=== PATIENT | male | born 1980 | race Two or more races ===

== ENCOUNTER → 2016-06-03 | Outpatient (CLI) | payer OTHER, MEDICARE, MEDICAID ==
--- NOTE | 2016-06-04 11:21 | EKG REPORT ---
SEVERITY:- NORMAL ECG - SINUS RHYTHM [Remains] SIGNIFICANT RATE DECREASE NO SIGNIFICANT CHANGE : Confirmed by: Jada Rosen 04-Jun-2016 11:20:02
== END ==
LOC: OD 12:01
PROVIDERS: ATTEND Physician Assistant
DX: R07.9 Chest pain, unspecified (principal)
CPT/HCPCS: 71020; 93005; 93010

== ENCOUNTER 2016-06-19 15:47 | Emergency (ER) | payer OTHER, MEDICARE, MEDICAID ==
[2016-06-19] MEDS ORDERED: ASPIRIN 81 MG TABLET, CHEWABLE PO ONE (15:57)
--- NOTE | 2016-06-19 15:59 | ER Document Report ---
ED Medical Screen (RME) - General Stated Complaint: CHEST PAIN Notes: Patient complains of intermittent chest pain started a couple weeks ago. Had an EKG ordered by his primary care physician which looked normal at the time. Chest pain started again about 1 hour prior to his arrival. Complains of shortness of breath and dizziness, denies nausea or vomiting. States pain radiates to both arms. Patient describes the pain as sharp. Denies past medical history. I have greeted and performed a rapid initial assessment of this patient. A comprehensive ED assessment and evaluation of the patient, analysis of test results and completion of the medical decision making process will be conducted by additional ED providers. TRAVEL OUTSIDE OF THE [place] IN LAST 30 DAYS: No - Related Data Allergies/Adverse Reactions: baclofen [Baclofen] Allergy (Severe, Verified 03/27/15 09:49) Coma rabeprazole sodium [From Aciphex] Allergy (Severe, Verified 03/27/15 09:49) Severe sweating, turned red tramadol HCl [From Ultram] Allergy (Severe, Verified 03/27/15 09:49) Severe N&V nickel [Nickel] Allergy (Intermediate, Verified 03/27/15 10:03) sore, blister hydrocodone bitartrate [From Vicodin] Allergy (Mild, Verified 03/27/15 09:49) RASH Past Medical History - Past Medical History Cardiac Medical History: Denies: Hx Coronary Artery Disease, Hx Heart Attack, Hx Hypertension Pulmonary Medical History: Reports: Hx Asthma - Last attack over 10 years ago Denies: Hx Bronchitis, Hx COPD, Hx Pneumonia, Hx Tuberculosis Neurological Medical History: Reports: Hx Seizures - hx of, pt states last seizure at age 12. Denies: Hx Cerebrovascular Accident Musculoskeltal Medical History: Reports Hx Arthritis, Denies Hx Fibromyalgia, Denies Hx Multiple Sclerosis, Denies Hx Muscular Dystrophy, Reports Hx Muscle Weakness, Reports Hx Musculoskeletal Deformity, Reports Hx Musculoskeletal Trauma Psychiatric Medical History: Denies: Hx Dementia Traumatic Medical History: Denies: Hx Fractures Past Surgical History: Reports: Hx Orthopedic Surgery - left foot. Denies: Hx Appendectomy, Hx Bowel Surgery, Hx Cholecystectomy, Hx Coronary Artery Bypass Graft, Hx Gastric Bypass Surgery, Hx Herniorrhaphy, Hx Pacemaker, Hx Tonsillectomy - Immunizations Immunizations up to date: Yes Hx Diphtheria, Pertussis, Tetanus Vaccination: Yes Physical Exam - Cardiovascular Rhythm: Regular Heart sounds: Normal auscultation
[2016-06-19 16:46] LABS: APPEARANCE,URINE CLEAR; BILIRUBIN,URINE NEGATIVE (NEGATIVE); GLUCOSE, URINE NEGATIVE (NEGATIVE); KETONES,URINE NEGATIVE (NEGATIVE); LEUKOCYTE ESTERASE,URINE NEGATIVE (NEGATIVE); NITRITE,URINE NEGATIVE (NEGATIVE); PROTEIN,URINE NEGATIVE (NEGATIVE); URINE SPECIFIC GRAVITY 1.024
--- NOTE | 2016-06-19 16:58 | ER Document Report ---
ED Cardiac - General Chief Complaint: Chest Pain > 30 Stated Complaint: CHEST PAIN Time seen by provider: 16:53 Mode of Arrival: Ambulatory Information source: Patient Notes: 35 yo smoker, nonhyperlipedemic, non dm, non htn, normal weight , fhx: mom ablation, male c/o sharp retrosternal intermittent bilateral chest pain associated with SOB that radiates into both arms a couple weeks ago. Each episode lasts from 30 minutes to all day. Deep breath sometimes makes it worse, better when he relaxes. No cough, No fever or chills. No change in actitity or job. EKG at PCP was normal. Came in today whlie at work at 3:30 pm while he was sitting. Has it now. denies drugs and alcohol. hx 2 shoulder surgeries, cervical fusion, left foot surgery. Pain level 4/5. TRAVEL OUTSIDE OF THE [place] IN LAST 30 DAYS: No - Related Data Allergies/Adverse Reactions: baclofen [Baclofen] Allergy (Severe, Verified 03/27/15 09:49) Coma rabeprazole sodium [From Aciphex] Allergy (Severe, Verified 03/27/15 09:49) Severe sweating, turned red tramadol HCl [From Ultram] Allergy (Severe, Verified 03/27/15 09:49) Severe N&V nickel [Nickel] Allergy (Intermediate, Verified 03/27/15 10:03) sore, blister hydrocodone bitartrate [From Vicodin] Allergy (Mild, Verified 03/27/15 09:49) RASH Past Medical History - General Information source: Patient - Social History Smoking Status: Current Every Day Smoker Chew tobacco use (# tins/day): No Frequency of alcohol use: None Drug Abuse: None Lives with: Spouse/Significant other Family History: DM, Thyroid Disfunction, Other - tachycardia/ablation Patient has suicidal ideation: No Patient has homicidal ideation: No Pulmonary Medical History: Reports: Hx Asthma - Last attack over 10 years ago Neurological Medical History: Reports: Hx Seizures - hx of, pt states last seizure at age 12 Renal/ Medical History: Denies: Hx Peritoneal Dialysis Musculoskeltal Medical History: Reports Hx Arthritis, Reports Hx Muscle Weakness , Reports Hx Musculoskeletal Deformity, Reports Hx Musculoskeletal Trauma Past Surgical History: Reports: Hx Orthopedic Surgery - left foot - Immunizations Immunizations up to date: Yes Hx Diphtheria, Pertussis, Tetanus Vaccination: Yes Review of Systems - Review of Systems Constitutional: No symptoms reported EENT: No symptoms reported Cardiovascular: See HPI Respiratory: No symptoms reported Gastrointestinal: No symptoms reported Genitourinary: No symptoms reported Male Genitourinary: No symptoms reported Musculoskeletal: No symptoms reported Skin: No symptoms reported Hematologic/Lymphatic: No symptoms reported Neurological/Psychological: No symptoms reported Physical Exam - Vital signs Vitals: Temp Pulse Resp BP Pulse Ox 97.7 F 86 16 137/77 H 98 06/19/16 15:56 06/19/16 15:56 06/19/16 15:56 06/19/16 15:56 06/19/16 15:56 Interpretation: Normal - General General appearance: Appears well, Alert - HEENT Head: Normocephalic, Atraumatic Eyes: Normal Conjunctiva: Normal Pupils: PERRL Tympanic membrane: Normal Mucous membranes: Normal Pharynx: Normal Neck: Supple. No: Lymphadenopathy - Respiratory Respiratory status: No respiratory distress Chest status: Nontender Breath sounds: Normal Chest palpation: Normal - Cardiovascular Rhythm: Regular Heart sounds: Normal auscultation Murmur: No - Abdominal Inspection: Normal Distension: No distension Bowel sounds: Normal Tenderness: Nontender. No: Tender Organomegaly: No organomegaly - Back Back: Normal, Nontender. No: CVA tenderness - Extremities General upper extremity: Normal inspection, Nontender, Normal color, Normal ROM , Normal temperature General lower extremity: Normal inspection, Nontender, Normal color, Normal ROM , Normal temperature, Normal weight bearing. No: Radha's sign - Neurological Neuro grossly intact: Yes Cognition: Normal Orientation: AAOx4 [place] Coma Scale Eye Opening: Spontaneous [place] Coma Scale Verbal: Oriented [place] Coma Scale Motor: Obeys Commands [place] Coma Scale Total: 15 Speech: Normal Motor strength normal: LUE, RUE, LLE, RLE Sensory: Normal - Psychological Associated symptoms: Normal affect, Normal mood - Skin Skin Temperature: Warm Skin Moisture: Dry Skin Color: Normal Skin irregularity: negative: Rash Course - Re-evaluation Re-evalutation: 06/19/16 18:12 Pain level is 3/5 morphine 4 mg ordered. 06/19/16 18:36 Patient pain level is 0. Morphine was not given so I canceled order. 06/19/16 18:36 First set of cardiac enzymes are negative the second set is due to be drawn at 06/19/16 18:47 2nd troponin will be drawn at [address] monk the second troponin is negative he be discharged home with a referral to cardiology. Report given to Will AGUILAR at the bedside 06/19/16 19:24 - Vital Signs Vital signs: Temp Pulse Resp BP Pulse Ox 97.7 F 86 20 137/80 H 97 06/19/16 15:56 06/19/16 15:56 06/19/16 17:07 06/19/16 17:06 06/19/16 17:07 - Laboratory Result Diagrams: 06/19/16 17:10 06/19/16 17:10 Laboratory results interpreted by me: 06/19/16 06/19/16 06/19/16 16:27 17:10 17:10 RBC 5.90 H RDW 15.1 H Glucose 119 H Urine Blood MODERATE H Urine Urobilinogen 2.0 H - EKG Interpretation by Me EKG shows normal: Sinus rhythm Rate: Normal Rhythm: NSR When compared to previous EKG there are: No significant change - from 06-05-16 - Transfer of Care Care transferred to following provider: Will AGUILAR at the bedside Discharge - Discharge Clinical Impression: chest pain Condition: Good Disposition: HOME, SELF-CARE Instructions: Chest Pain of Unclear Cause ([facility]), Aspirin (Cardiac) ([facility]) Additional Instructions: Call and 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 If you do not receive a survey, then you can go to the [facility] website, [email or web address] and place your comments about your very good care. Thank you very much. It was a pleasure being your medical provider today. Referrals: ROBERT VIGIL MD [Primary Care Provider] - Follow up as needed LAURY OWENS MD [ACTIVE STAFF] - Follow up in 3-5 days
[2016-06-19 17:31] LABS: ABSOLUTE BASOPHILS # (AUTO) 0.1 10^3/uL (0.0-0.2); ABSOLUTE EOSINOPHILS # (AUTO) 0.3 10^3/uL (0.0-0.6); ABSOLUTE LYMPHOCYTES (AUTO) 1.6 10^3/uL (0.5-4.7); ABSOLUTE MONOCYTES (AUTO) 0.6 10^3/uL (0.1-1.4); ABSOLUTE NEUT (AUTO) 4.1 10^3/uL (1.7-8.2); BASOPHILS % (AUTO) 0.8 % (0-2); EOSINOPHILS % (AUTO) 4.8 % (0-6); HEMATOCRIT 47.9 % (37.9-51.0); HEMOGLOBIN 16.1 g/dL (13.5-17.0); HGB HCT DIFFERENCE 0.4; LYMPHOCYTES % (AUTO) 24.4 % (13-45); MEAN CORPUSCULAR HEMOGLOBIN 27.4 pg (27.0-33.4); MEAN CORPUSCULAR HGB CONC 33.7 g/dL (32.0-36.0); MEAN CORPUSCULAR VOLUME 81 fl (80-97); MONOCYTES % (AUTO) 9.3 % (3-13); RED CELL DISTRIBUTION WIDTH 15.1 % (11.5-14.0); SEGMENTED NEUTROPHILS % (AUTO) 60.7 % (42-78); WHITE BLOOD COUNT 6.8 10^3/uL (4.0-10.5)
[2016-06-19 17:55] LABS: ALANINE AMINOTRANSFERASE 37 U/L (21-72); ALBUMIN 4.5 g/dL (3.5-5.0); ALKALINE PHOSPHATASE 88 U/L (38-126); ANION GAP 16 (5-19); ASPARTATE AMINO TRANSFERASE 26 U/L (17-59); BILIRUBIN,DIRECT 0.4 mg/dL (0.0-0.4); BILIRUBIN,TOTAL 0.6 mg/dL (0.2-1.3); BLOOD UREA NITROGEN 15 mg/dL (7-20); CALCIUM 9.4 mg/dL (8.4-10.2); CARBON DIOXIDE 23 mmol/L (22-30); CHLORIDE 106 mmol/L (98-107); CREATINE KINASE 133 U/L (55-170); CREATININE RESULT 1.02 mg/dL (0.52-1.25); GLUCOSE 119 mg/dL (75-110); POTASSIUM 4.1 mmol/L (3.6-5.0); TOTAL PROTEIN 7.5 g/dL (6.3-8.2)
[2016-06-19 18:05] LABS: CREATINE KINASE MB 0.88 ng/mL (<4.55)
[2016-06-19 18:08] LABS: TROPONIN I < 0.012 ng/mL
[2016-06-19] MEDS ORDERED: MORPHINE SULFATE 10 MG/ML INJ IV ONE (18:11)
[2016-06-19 19:01] LABS: URINE BARBITURATES SCREEN NEGATIVE; URINE METHADONE SCREEN NEGATIVE; URINE OPIATES LOW NEGATIVE; URINE PHENCYCLIDINE SCREEN NEGATIVE
[2016-06-19 21:30] VITALS: BP 115/71
--- NOTE | 2016-06-19 22:02 | EKG REPORT ---
SEVERITY:- OTHERWISE NORMAL ECG - SINUS RHYTHM BORDERLINE LEFT AXIS DEVIATION : Confirmed by: Jada Rosen 19-Jun-2016 22:01:35
== END 2016-06-19 21:36 | disposition home or self-care (01) ==
LOC: ER 15:47
DX: R07.9 Chest pain, unspecified (principal); F17.200 Nicotine dependence, unspecified, uncomplicated
CPT/HCPCS: 36415; 71010; 80053; 80307; 81001; 82550; 82553; 84484; 85025; 93005; 93010; 99285

== ENCOUNTER → 2016-08-12 | Outpatient (CLI) | payer OTHER, MEDICARE, MEDICAID ==
[2016-08-12 11:04] LABS: ABSOLUTE BASOPHILS # (AUTO) 0.1 10^3/uL (0.0-0.2); ABSOLUTE EOSINOPHILS # (AUTO) 0.3 10^3/uL (0.0-0.6); ABSOLUTE LYMPHOCYTES (AUTO) 1.8 10^3/uL (0.5-4.7); ABSOLUTE MONOCYTES (AUTO) 0.6 10^3/uL (0.1-1.4); ABSOLUTE NEUT (AUTO) 3.7 10^3/uL (1.7-8.2); BASOPHILS % (AUTO) 0.8 % (0-2); EOSINOPHILS % (AUTO) 4.4 % (0-6); HEMATOCRIT 47.5 % (37.9-51.0); HGB HCT DIFFERENCE 0.5; LYMPHOCYTES % (AUTO) 28.3 % (13-45); MEAN CORPUSCULAR HEMOGLOBIN 27.6 pg (27.0-33.4); MEAN CORPUSCULAR HGB CONC 33.6 g/dL (32.0-36.0); MEAN CORPUSCULAR VOLUME 82 fl (80-97); MONOCYTES % (AUTO) 8.9 % (3-13); RED BLOOD COUNT 5.79 10^6/uL (4.35-5.55); RED CELL DISTRIBUTION WIDTH 14.9 % (11.5-14.0); SEGMENTED NEUTROPHILS % (AUTO) 57.6 % (42-78); WHITE BLOOD COUNT 6.5 10^3/uL (4.0-10.5)
[2016-08-12 11:11] LABS: PARTIAL THROMBOPLASTIN TIME 29.4 SEC (23.5-35.8)
[2016-08-12 11:23] LABS: ALANINE AMINOTRANSFERASE 36 U/L (21-72); ALBUMIN 4.5 g/dL (3.5-5.0); ALKALINE PHOSPHATASE 85 U/L (38-126); ANION GAP 12 (5-19); ASPARTATE AMINO TRANSFERASE 28 U/L (17-59); BILIRUBIN,DIRECT 0.3 mg/dL (0.0-0.4); BILIRUBIN,TOTAL 0.7 mg/dL (0.2-1.3); BLOOD UREA NITROGEN 9 mg/dL (7-20); CALCIUM 9.8 mg/dL (8.4-10.2); CARBON DIOXIDE 25 mmol/L (22-30); CHLORIDE 106 mmol/L (98-107); CHOLESTEROL 184.35 mg/dL (0-200); CREATININE RESULT 1.02 mg/dL (0.52-1.25); Direct HDL 37 mg/dL (>40); GLUCOSE 83 mg/dL (75-110); POTASSIUM 4.1 mmol/L (3.6-5.0); SODIUM 143.2 mmol/L (137-145); TOTAL PROTEIN 7.5 g/dL (6.3-8.2); TRIGLYCERIDES 307 mg/dL (<150)
[2016-08-12 11:34] LABS: DIRECT LDL 106 mg/dL (<100)
[2016-08-12 11:39] LABS: VLDL CHOLESTEROL 61.4 mg/dL (10-31)
== END ==
LOC: LAB 10:35
PROVIDERS: ATTEND Physician Assistant Medical
DX: R07.9 Chest pain, unspecified (principal); R06.00 Dyspnea, unspecified; R42 Dizziness and giddiness
CPT/HCPCS: 36415; 80053; 80061; 83036; 85025; 85610; 85730

== ENCOUNTER 2016-11-19 08:27 | Emergency (ER) | payer OTHER, MEDICARE, MEDICAID ==
[2016-11-19] MEDS ORDERED: NORMAL SALINE 1000 ML 1,000 ML IV ONE ×2 (09:13→10:36)
[2016-11-19 09:39] LABS: ABSOLUTE EOSINOPHILS # (AUTO) 0.2 10^3/uL (0.0-0.6); ABSOLUTE LYMPHOCYTES (AUTO) 1.4 10^3/uL (0.5-4.7); ABSOLUTE MONOCYTES (AUTO) 0.5 10^3/uL (0.1-1.4); ABSOLUTE NEUT (AUTO) 3.7 10^3/uL (1.7-8.2); BASOPHILS % (AUTO) 0.8 % (0-2); HEMOGLOBIN 16.6 g/dL (13.5-17.0); HGB HCT DIFFERENCE 0.8; LYMPHOCYTES % (AUTO) 24.3 % (13-45); MEAN CORPUSCULAR HEMOGLOBIN 28.4 pg (27.0-33.4); MEAN CORPUSCULAR VOLUME 84 fl (80-97); MONOCYTES % (AUTO) 8.8 % (3-13); RED BLOOD COUNT 5.87 10^6/uL (4.35-5.55); RED CELL DISTRIBUTION WIDTH 15.2 % (11.5-14.0); SEGMENTED NEUTROPHILS % (AUTO) 62.1 % (42-78); WHITE BLOOD COUNT 5.9 10^3/uL (4.0-10.5)
--- NOTE | 2016-11-19 09:55 | RADIOLOGY REPORT (SQ) ---
EXAM DESCRIPTION: CT HEAD WITHOUT COMPLETED DATE/TIME: 11/19/2016 9:18 am REASON FOR STUDY: ams COMPARISON: 08/03/2016, 12/30/2009, 11/22/2011, 11/27/2011 CT brain TECHNIQUE: Axial images acquired through the brain without intravenous contrast. Images reviewed wi th bone, brain and subdural windows. Images stored on PACS. All CT scanners at this facility use dose modulation, iterative reconstruction, and/or weight based d osing when appropriate to reduce radiation dose to as low as reasonably achievable (ALARA). [facility]: Dose Right [facility]: CareDose [facility]: Dose Right [facility]: Teradose 4D [facility]: [employer] RADIATION DOSE: Up-to-date CT equipment and radiation dose reduction techniques were employed. CTDIv ol: 64.6 mGy. DLP: 1163 mGy-cm. mGy. LIMITATIONS: None. FINDINGS: VENTRICLES: The lateral ventricles are asymmetric, right body lateral ventricle slightly l arger than the left. This is similar compared to 2006. No dilatation of the temporal horns lateral ventricles, 3rd, or 4th ventricle worrisome for hydrocephalus. This ventricular asymmetry along the right body lateral ventricle is likely developmental. CEREBRUM: No masses. No hemorrhage. No midline shift. No evidence for acute infarction. Normal gra y/white matter differentiation. No areas of low density in the white matter. CEREBELLUM: No masses. No hemorrhage. No alteration of density. No evidence for acute infarction. EXTRAAXIAL SPACES: No fluid collections. No masses. ORBITS AND GLOBE: No intra- or extraconal masses. Normal contour of globe without masses. CALVARIUM: No fracture. PARANASAL SINUSES: No fluid or mucosal thickening. SOFT TISSUES: No mass or hematoma. OTHER: No other significant finding. IMPRESSION: NORMAL BRAIN CT WITHOUT CONTRAST. COMMENT: Quality ID # [id number]: Final reports with documentation of one or more dose reduction techniques (e.g., Automated exposure control, adjustment of the mA and/or kV according to patient size, use of iterative reconstruction technique) TECHNICAL DOCUMENTATION: JOB ID: [id number] [employer]- All Rights Reserved
--- NOTE | 2016-11-19 09:57 | RADIOLOGY REPORT (SQ) ---
EXAM DESCRIPTION: CHEST PA/LAT COMPLETED DATE/TIME: 11/19/2016 9:25 am REASON FOR STUDY: ams COMPARISON: Two-view chest 06/03/2016, AP chest 07/16/2010, 12/30/2009 EXAM PARAMETERS: NUMBER OF VIEWS: two views TECHNIQUE: Digital Frontal and Lateral radiographic views of the chest acquired. RADIATION DOSE: NA LIMITATIONS: none FINDINGS: LUNGS AND PLEURA: No opacities, masses or pneumothorax. No pleural effusion. MEDIASTINUM AND HILAR STRUCTURES: No masses or contour abnormalities. HEART AND VASCULAR STRUCTURES: Heart normal size. No evidence for failure. BONES: No acute findings. HARDWARE: None in the chest. OTHER: No other significant finding. IMPRESSION: NO SIGNIFICANT RADIOGRAPHIC FINDING IN THE CHEST. TECHNICAL DOCUMENTATION: JOB ID: [id number] [employer]- All Rights Reserved
[2016-11-19 10:00] LABS: ALANINE AMINOTRANSFERASE 38 U/L (21-72); ALBUMIN 4.7 g/dL (3.5-5.0); ALCOHOL 72 mg/dL (NONE DETECTED); ALKALINE PHOSPHATASE 119 U/L (38-126); ANION GAP 13 (5-19); ASPARTATE AMINO TRANSFERASE 26 U/L (17-59); BILIRUBIN,DIRECT 0.4 mg/dL (0.0-0.4); BILIRUBIN,TOTAL 0.5 mg/dL (0.2-1.3); BLOOD UREA NITROGEN 14 mg/dL (7-20); CALCIUM 9.6 mg/dL (8.4-10.2); CARBON DIOXIDE 24 mmol/L (22-30); CHLORIDE 111 mmol/L (98-107); CREATINE KINASE 155 U/L (55-170); CREATININE RESULT 1.04 mg/dL (0.52-1.25); GLUCOSE 92 mg/dL (75-110); POTASSIUM 4.2 mmol/L (3.6-5.0); SODIUM 148.1 mmol/L (137-145); TOTAL PROTEIN 7.8 g/dL (6.3-8.2)
[2016-11-19 10:11] LABS: CREATINE KINASE MB 1.36 ng/mL (<4.55)
[2016-11-19 10:18] LABS: TROPONIN I < 0.012 ng/mL
[2016-11-19 10:27] LABS: APPEARANCE,URINE CLEAR; BILIRUBIN,URINE NEGATIVE (NEGATIVE); GLUCOSE, URINE NEGATIVE (NEGATIVE); KETONES,URINE NEGATIVE (NEGATIVE); LEUKOCYTE ESTERASE,URINE NEGATIVE (NEGATIVE); NITRITE,URINE NEGATIVE (NEGATIVE); PROTEIN,URINE NEGATIVE (NEGATIVE); URINE SPECIFIC GRAVITY 1.024
[2016-11-19 10:49] LABS: PROTHROMBIN TIME 13.5 SEC (11.4-15.4)
[2016-11-19 10:54] LABS: URINE BARBITURATES SCREEN NEGATIVE; URINE METHADONE SCREEN NEGATIVE; URINE OPIATES LOW NEGATIVE; URINE PHENCYCLIDINE SCREEN NEGATIVE
--- NOTE | 2016-11-19 11:52 | ER Document Report ---
ED General - General Chief Complaint: Slurred Speech Stated Complaint: CHEST PAIN/POSSIBLE SEIZURE Time Seen by Provider: 11/19/16 08:50 TRAVEL OUTSIDE OF THE [place] IN LAST 30 DAYS: No - HPI Patient complains to provider of: Stuttering speech Notes: Patient coming in number for stuttering speech slow to respond. 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 Quick review of the patient's medical visits here shows history of substance abuse including cocaine and marijuana. Patient states woke up this morning had difficulty time in speaking and now is stuttering. Patient states was drinking alcohol last night. Patient states symptoms have continued since upon waking states has a history of seizures in the past is not on any anti- seizure medication right now family member at bedside is unaware the patient may have had a seizure or not. 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 - Related Data Allergies/Adverse Reactions: baclofen [Baclofen] Allergy (Severe, Verified 11/19/16 08:39) Coma rabeprazole sodium [From Aciphex] Allergy (Severe, Verified 11/19/16 08:39) Severe sweating, turned red tramadol HCl [From Ultram] Allergy (Severe, Verified 11/19/16 08:39) Severe N&V nickel [Nickel] Allergy (Intermediate, Verified 11/19/16 08:39) sore, blister hydrocodone bitartrate [From Vicodin] Allergy (Mild, Verified 11/19/16 08:39) RASH Home Medications: Current Home Medications Aspirin [Aspirin 81 mg Chewable Tablet] 81 mg PO DAILY 11/19/16 [History] Atorvastatin Calcium [Lipitor 20 mg Tablet] 20 mg PO DAILY 11/19/16 [History] Metoprolol Succinate/Hctz [Metoprolol ER-Hctz 25-12.5 mg] 25 mg PO DAILY [History] Prasugrel Hydrochloride [Effient] 10 mg PO DAILY 11/19/16 [History] Past Medical History - Social History Smoking Status: Current Every Day Smoker Chew tobacco use (# tins/day): No Frequency of alcohol use: Occasional Drug Abuse: None Family History: DM, Thyroid Disfunction, Other - tachycardia/ablation - Past Medical History Cardiac Medical History: Reports: Hx Heart Attack Denies: Hx Coronary Artery Disease, Hx Hypertension Pulmonary Medical History: Reports: Hx Asthma - Last attack over 10 years ago Denies: Hx Bronchitis, Hx COPD, Hx Pneumonia, Hx Tuberculosis Neurological Medical History: Reports: Hx Seizures - hx of, pt states last seizure at age 12. Denies: Hx Cerebrovascular Accident Renal/ Medical History: Denies: Hx Peritoneal Dialysis Musculoskeltal Medical History: Reports Hx Arthritis, Denies Hx Fibromyalgia, Denies Hx Multiple Sclerosis, Denies Hx Muscular Dystrophy, Reports Hx Muscle Weakness, Reports Hx Musculoskeletal Deformity, Reports Hx Musculoskeletal Trauma Psychiatric Medical History: Denies: Hx Dementia Traumatic Medical History: Denies: Hx Fractures Past Surgical History: Reports: Hx Orthopedic Surgery - left foot. Denies: Hx Appendectomy, Hx Bowel Surgery, Hx Cholecystectomy, Hx Coronary Artery Bypass Graft, Hx Gastric Bypass Surgery, Hx Herniorrhaphy, Hx Pacemaker, Hx Tonsillectomy - Immunizations Immunizations up to date: Yes Hx Diphtheria, Pertussis, Tetanus Vaccination: Yes Review of Systems - Review of Systems Constitutional: Other - Stuttering speech EENT: No symptoms reported Cardiovascular: No symptoms reported Respiratory: No symptoms reported Gastrointestinal: No symptoms reported Genitourinary: No symptoms reported Male Genitourinary: No symptoms reported Musculoskeletal: No symptoms reported Skin: No symptoms reported Hematologic/Lymphatic: No symptoms reported Neurological/Psychological: No symptoms reported Physical Exam - Vital signs Vitals: Temp Pulse Resp BP Pulse Ox 98.4 F 58 L 16 106/63 95 11/19/16 08:38 11/19/16 08:38 11/19/16 08:38 11/19/16 08:38 11/19/16 08:38 Interpretation: Normal - General General appearance: Appears well, Alert - HEENT Head: Normocephalic, Atraumatic Eyes: Normal Pupils: PERRL - Respiratory Respiratory status: No respiratory distress Chest status: Nontender Breath sounds: Normal Chest palpation: Normal - Cardiovascular Rhythm: Regular Heart sounds: Normal auscultation Murmur: No - Abdominal Inspection: Normal Distension: No distension Bowel sounds: Normal Tenderness: Nontender Organomegaly: No organomegaly - Back Back: Normal, Nontender - Extremities General upper extremity: Normal inspection, Nontender, Normal color, Normal ROM , Normal temperature General lower extremity: Normal inspection, Nontender, Normal color, Normal ROM , Normal temperature, Normal weight bearing. 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 Patient alcohol level is reported above 70. Explained to the family members and patient at bedside patient more likely when he woke up this morning at 6:00 was legally drunk. Patient states after receiving fluids his symptoms have resolved and he is feeling much better. CT of the head shows no acute pathology chest x-ray is also negative. More likely symptoms are due to the patient's alcohol use patient is currently asymptomatic we will discharge home educated about sustaining from alcohol. - Vital Signs Vital signs: Temp Pulse Resp BP Pulse Ox 97.5 F 58 L 12 112/81 100 11/19/16 11:58 11/19/16 08:38 11/19/16 11:57 11/19/16 11:58 11/19/16 11:57 - Laboratory Result Diagrams: 11/19/16 08:55 11/19/16 08:55 Laboratory results interpreted by me: 11/19/16 11/19/16 11/19/16 08:55 08:55 09:22 RBC 5.87 H RDW 15.2 H Sodium 148.1 H Chloride 111 H Urine Blood MODERATE H Urine Urobilinogen 4.0 H Salicylates < 1.0 L Acetaminophen < 10 L Discharge - Discharge Clinical Impression: Acute alcohol use Condition: Good Disposition: HOME, SELF-CARE Instructions: Acute Alcohol Intoxication ([facility]) Additional Instructions: Your symptoms today are more likely result of alcohol that was found within your system. Lab work does show signs of dehydration we did give the IV fluids here. Will recommend drinking plenty of water. Return to the ER symptoms continue or worsen follow-up with your primary care physician. Referrals: DERECK MONTERO PA-C [Primary Care Provider] - Follow up as needed
[2016-11-19 12:00] VITALS: BP 112/81
--- NOTE | 2016-11-19 23:56 | EKG REPORT ---
SEVERITY:- OTHERWISE NORMAL ECG - SINUS RHYTHM BORDERLINE LEFT AXIS DEVIATION ST ELEV, PROBABLE NORMAL EARLY REPOL PATTERN : Confirmed by: Jada Rosen 19-Nov-2016 23:55:20
== END 2016-11-19 12:00 | disposition home or self-care (01) ==
LOC: ER 08:27
DX: R47.81 Slurred speech (principal); Z72.89 Other problems related to lifestyle; R07.9 Chest pain, unspecified; G80.9 Cerebral palsy, unspecified; F17.200 Nicotine dependence, unspecified, uncomplicated
CPT/HCPCS: 93005; 99285; 36415; 82553; 80307 ×4; 82550; 85025; 85610; 80053; 81001; 84484; 71020; 70450; 93010; J7030

== ENCOUNTER 2017-02-05 14:15 | Emergency (ER) | payer OTHER, MEDICARE, MEDICAID ==
[2017-02-05] MEDS ORDERED: OXYCODONE HCL IR 5 MG TABLET PO ONE (15:29)
--- NOTE | 2017-02-05 15:50 | ER Document Report ---
HPI - HPI Patient complains to provider of: Right wrist injury Onset: Yesterday Onset/Duration: Sudden Quality of pain: Achy Pain Level: 4 Context: Patient states that he was playing around at home, slipped on a wood floor and fell injuring his right wrist and forearm. Patient states that he landed with his arm across his chest and landed on his forearm. Patient complains of pain to the right wrist and right forearm. Associated Symptoms: Other - Right wrist, forearm pain Exacerbated by: Movement Relieved by: Denies Similar symptoms previously: No Recently seen / treated by doctor: No - ROS ROS below otherwise negative: Yes Systems Reviewed and Negative: Yes All other systems reviewed and negative - CONSTITUTIONAL Constitutional: DENIES: Fever, Chills - NEURO Neurology: DENIES: Weakness - RESPIRATORY Respiratory: DENIES: Trouble Breathing, Coughing - REPRODUCTIVE Reproductive: DENIES: :, Postmenopausal, Abnormal bleeding / discharge - MUSCULOSKELETAL Musculoskeletal: REPORTS: Extremity pain - R wrist, forearm - DERM Skin Color: Normal Past Medical History - General Information source: Patient - Social History Smoking Status: Current Every Day Smoker Chew tobacco use (# tins/day): No Smoking Education Provided: Yes - for at least 4 min Frequency of alcohol use: None Drug Abuse: None 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 Denies: Hx Cerebrovascular Accident Renal/ Medical History: Denies: Hx Peritoneal Dialysis Musculoskeltal Medical History: Reports Hx Arthritis, Denies Hx Fibromyalgia, Denies Hx Multiple Sclerosis, Denies Hx Muscular Dystrophy, Reports Hx Muscle Weakness, Reports Hx Musculoskeletal Deformity, Reports Hx Musculoskeletal Trauma Psychiatric Medical History: Denies: Hx Dementia Traumatic Medical History: Denies: Hx Fractures Past Surgical History: Reports: Hx Orthopedic Surgery - left foot. Denies: Hx Appendectomy, Hx Bowel Surgery, Hx Cholecystectomy, Hx Coronary Artery Bypass Graft, Hx Gastric Bypass Surgery, Hx Herniorrhaphy, Hx Pacemaker, Hx Tonsillectomy - Immunizations Immunizations up to date: Yes Hx Diphtheria, Pertussis, Tetanus Vaccination: Yes Vertical Provider Document - CONSTITUTIONAL Agree With Documented VS: Yes Exam Limitations: No Limitations General Appearance: WD/WN, No Apparent Distress - INFECTION CONTROL TRAVEL OUTSIDE OF THE [place] IN LAST 30 DAYS: No - HEENT HEENT: Atraumatic, Normocephalic - NECK Neck: Normal Inspection, Supple - RESPIRATORY Respiratory: Breath Sounds Normal, No Respiratory Distress O2 Sat by Pulse Oximetry: 96 - CARDIOVASCULAR Pulses: Normal: Radial - BACK Back: Normal Inspection - MUSCULOSKELETAL/EXTREMETIES Musculoskeletal/Extremeties: MAEW, Tender - Patient with right forearm tenderness from middle third to distal third of right forearm. No obvious deformity or ecchymosis, No Edema. negative: Eccymosis Notes: Right distal radius tenderness, no ecchymosis or edema - NEURO Level of Consciousness: Awake, Alert, Appropriate Motor/Sensory: No Motor Deficit, No Sensory Deficit - DERM Integumentary: Warm, Dry, No Rash Course - Re-evaluation Re-evalutation: 02/05/17 16:15 Patient states that his pain medication is not working at this time. Patient advised that it takes at least 45 minutes to an hour for oral medications to have peak narcotic effect. Patient encouraged to take his narcotic pain medication that he has at home as prescribed. - Vital Signs Vital signs: Temp Pulse Resp BP Pulse Ox 98.4 F 78 18 125/92 H 96 02/05/17 14:22 02/05/17 14:22 02/05/17 14:22 02/05/17 14:22 02/05/17 14:22 - Diagnostic Test Radiology reviewed: Image reviewed, Reports reviewed Procedures - Immobilization Right Wrist Pre-Proc Neuro Vasc Exam: Normal Immobilizer type: Cock-up Performed by: PCT Post-Proc Neuro Vasc Exam: Normal Alignment checked and good: Yes Discharge - Discharge Clinical Impression: Right forearm pain Fall Qualifiers: Encounter type: initial encounter Qualified Code(s): W19.XXXA - Unspecified fall, initial encounter Right wrist sprain Qualifiers: Encounter type: initial encounter Qualified Code(s): S63.501A - Unspecified sprain of right wrist, initial encounter Condition: Stable Disposition: HOME, SELF-CARE Instructions: Ice & Elevation ([facility]), Wrist Sprain ([facility]), Temporary Splint ([facility]) Additional Instructions: Return immediately for any new or worsening symptoms Followup with your primary care provider, call tomorrow to make a followup appointment Take your pain medication that you have at home as prescribed Follow-up with orthopedic doctor for any continued pain or problems Wear the splint for the next 3 days and then remove, if still having pain replace the splint and follow-up with orthopedic doctor. Forms: Return to Work Referrals: DERECK MONTERO PA-C [Primary Care Provider] - Follow up as needed [facility] [Provider Group] - Follow up as needed
--- NOTE | 2017-02-05 16:01 | RADIOLOGY REPORT (SQ) ---
EXAM DESCRIPTION: FOREARM RIGHT COMPLETED DATE/TIME: 02/05/2017 3:47 pm REASON FOR STUDY: fall, r wrist, FA pain COMPARISON: None. NUMBER OF VIEWS: Two views. TECHNIQUE: Two radiographic images acquired of the right forearm, including elbow and wrist in at le ast one projection. LIMITATIONS: None. FINDINGS: MINERALIZATION: Normal. BONES: No acute fracture. No worrisome bone lesions. SOFT TISSUES: No obvious swelling or foreign body. OTHER: No other significant finding. IMPRESSION: NEGATIVE STUDY OF THE RIGHT FOREARM. NO RADIOGRAPHIC EVIDENCE OF ACUTE INJURY. TECHNICAL DOCUMENTATION: JOB ID: [id number] [employer]- All Rights Reserved
[2017-02-05 16:43] VITALS: BP 124/70
== END 2017-02-05 16:43 | disposition home or self-care (01) ==
LOC: ER 14:15
DX: S63.501A Unspecified sprain of right wrist, initial encounter (principal); M25.531 Pain in right wrist; M79.631 Pain in right forearm; W01.0XXA Fall on same level from slipping, tripping and stumbling without subsequent striking against object, initial encounter; Y92.009 Unspecified place in unspecified non-institutional (private) residence as the place of occurrence of the external cause; F17.200 Nicotine dependence, unspecified, uncomplicated
CPT/HCPCS: 99406; 99283; 73090; L3908

== ENCOUNTER 2017-02-09 20:02 | Emergency (ER) | payer OTHER, MEDICARE, MEDICAID ==
[2017-02-09 20:25] VITALS: BP 117/68
[2017-02-09] MEDS ORDERED: ASPIRIN 81 MG TABLET, CHEWABLE PO ONE (20:34)
--- NOTE | 2017-02-09 21:04 | RADIOLOGY REPORT (SQ) ---
EXAM DESCRIPTION: CHEST SINGLE VIEW COMPLETED DATE/TIME: 02/09/2017 8:51 pm REASON FOR STUDY: chest pain COMPARISON: October 2016 EXAM PARAMETERS: NUMBER OF VIEWS: One view. TECHNIQUE: Single frontal radiographic view of the chest acquired. RADIATION DOSE: NA LIMITATIONS: None. FINDINGS: LUNGS AND PLEURA: No opacities, masses or pneumothorax. No pleural effusion. MEDIASTINUM AND HILAR STRUCTURES: No masses. Contour normal. HEART AND VASCULAR STRUCTURES: Heart normal in size. Normal vasculature. BONES: No acute findings. HARDWARE: None in the chest. OTHER: No other significant finding. IMPRESSION: NO ACUTE RADIOGRAPHIC FINDING IN THE CHEST. TECHNICAL DOCUMENTATION: JOB ID: [id number] [employer]- All Rights Reserved
[2017-02-09 21:07] LABS: ABSOLUTE BASOPHILS # (AUTO) 0.1 10^3/uL (0.0-0.2); ABSOLUTE EOSINOPHILS # (AUTO) 0.3 10^3/uL (0.0-0.6); ABSOLUTE LYMPHOCYTES (AUTO) 1.9 10^3/uL (0.5-4.7); ABSOLUTE MONOCYTES (AUTO) 0.6 10^3/uL (0.1-1.4); ABSOLUTE NEUT (AUTO) 4.3 10^3/uL (1.7-8.2); BASOPHILS % (AUTO) 1.2 % (0-2); EOSINOPHILS % (AUTO) 3.6 % (0-6); HEMATOCRIT 44.2 % (37.9-51.0); HEMOGLOBIN 15.3 g/dL (13.5-17.0); HGB HCT DIFFERENCE 1.7; LYMPHOCYTES % (AUTO) 26.4 % (13-45); MEAN CORPUSCULAR HEMOGLOBIN 28.3 pg (27.0-33.4); MEAN CORPUSCULAR HGB CONC 34.7 g/dL (32.0-36.0); MEAN CORPUSCULAR VOLUME 82 fl (80-97); MONOCYTES % (AUTO) 8.8 % (3-13); RED BLOOD COUNT 5.43 10^6/uL (4.35-5.55); RED CELL DISTRIBUTION WIDTH 14.7 % (11.5-14.0); WHITE BLOOD COUNT 7.2 10^3/uL (4.0-10.5)
[2017-02-09 21:25] LABS: ANION GAP 12 (5-19); BLOOD UREA NITROGEN 12 mg/dL (7-20); CALCIUM 9.2 mg/dL (8.4-10.2); CARBON DIOXIDE 27 mmol/L (22-30); CHLORIDE 106 mmol/L (98-107); CREATININE RESULT 1.03 mg/dL (0.52-1.25); GLUCOSE 83 mg/dL (75-110); POTASSIUM 4.1 mmol/L (3.6-5.0); SODIUM 145.2 mmol/L (137-145)
[2017-02-09] MEDS ORDERED: LIDOCAINE 2% VISCOUS SOLN 20 ML UDCUP PO ONE (22:25)
[2017-02-09] MEDS ORDERED: METOCLOPRAMIDE HCL ORAL SOLN 10 MG/10 ML UDCUP PO ONE (22:25)
[2017-02-09] MEDS ORDERED: MAG HYDROX/AL HYDROX/SIMETH SUSP 30 ML UDCUP PO ONE (22:25)
[2017-02-09] MEDS ORDERED: FAMOTIDINE 20 MG TABLET PO ONE (22:28)
--- NOTE | 2017-02-09 22:29 | ER Document Report ---
ED General - General Chief Complaint: Chest Pain Stated Complaint: SHORTNESS OF BREATH,CHEST PAIN Time Seen by Provider: 02/09/17 20:31 Notes: Patient is a 36-year-old male with a past medical history of cerebral palsy and an iatrogenic coronary artery laceration during a cardiac catheterization in August who presents with chest pain. Patient reports that he frequently has chest pain but for the past 4-5 days he has had a pressure, stabbing like sensation to the left central chest that intimately radiates into his left arm. He denies any associated diaphoresis, nausea or vomiting. He states he frequently gets chest pain but the persistence of the pain prompted him to come to the emergency department. Of note the cardiac catheterization was performed in August 2016 did not show any evidence of coronary artery disease and stents were only placed to correct the iatrogenic arterial injury. He denies any history of diabetes, hyperlipidemia but does take lisinopril for hypertension. He does not smoke. 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 He does have nitroglycerin available at home for chest pain but did not take it today. TRAVEL OUTSIDE OF THE [place] IN LAST 30 DAYS: No - Related Data Allergies/Adverse Reactions: baclofen [Baclofen] Allergy (Severe, Verified 11/19/16 08:39) Coma rabeprazole sodium [From Aciphex] Allergy (Severe, Verified 11/19/16 08:39) Severe sweating, turned red tramadol HCl [From Ultram] Allergy (Severe, Verified 11/19/16 08:39) Severe N&V nickel [Nickel] Allergy (Intermediate, Verified 11/19/16 08:39) sore, blister hydrocodone bitartrate [From Vicodin] Allergy (Mild, Verified 11/19/16 08:39) RASH acetaminophen [From Tylenol] Allergy (Verified 02/05/17 14:22) Past Medical History - General Information source: Patient - Social History Smoking Status: Never Smoker Frequency of alcohol use: None Drug Abuse: None Lives with: Spouse/Significant other Family History: DM, Thyroid Disfunction, Other - tachycardia/ablation - Past Medical History Cardiac Medical History: Reports: Hx Heart Attack Denies: Hx Coronary Artery Disease, Hx Hypertension Pulmonary Medical History: Reports: Hx Asthma - Last attack over 10 years ago Denies: Hx Bronchitis, Hx COPD, Hx Pneumonia, Hx Tuberculosis Neurological Medical History: Reports: Hx Seizures - hx of, pt states last seizure at age 12. Denies: Hx Cerebrovascular Accident Renal/ Medical History: Denies: Hx Peritoneal Dialysis Musculoskeltal Medical History: Reports Hx Arthritis, Denies Hx Fibromyalgia, Denies Hx Multiple Sclerosis, Denies Hx Muscular Dystrophy, Reports Hx Muscle Weakness, Reports Hx Musculoskeletal Deformity, Reports Hx Musculoskeletal Trauma Psychiatric Medical History: Denies: Hx Dementia Traumatic Medical History: Denies: Hx Fractures Past Surgical History: Reports: Hx Orthopedic Surgery - left foot. Denies: Hx Appendectomy, Hx Bowel Surgery, Hx Cholecystectomy, Hx Coronary Artery Bypass Graft, Hx Gastric Bypass Surgery, Hx Herniorrhaphy, Hx Pacemaker, Hx Tonsillectomy - Immunizations Immunizations up to date: Yes Hx Diphtheria, Pertussis, Tetanus Vaccination: Yes Review of Systems - Review of Systems Notes: Constitutional: Negative for fever. HENT: Negative for sore throat. Eyes: Negative for visual changes. Cardiovascular: Positive for chest pain. Respiratory: Negative for shortness of breath. Gastrointestinal: Negative for abdominal pain, vomiting or diarrhea. Genitourinary: Negative for dysuria. Musculoskeletal: Negative for back pain. Skin: Negative for rash. Neurological: Negative for headaches, weakness or numbness. 10 point ROS negative except as marked above and in HPI. Physical Exam - Vital signs Vitals: Temp Pulse Resp BP Pulse Ox 98.7 F 64 20 117/68 96 02/09/17 20:23 02/09/17 20:23 02/09/17 20:23 02/09/17 20:23 02/09/17 20:23 Interpretation: Normal Notes: PHYSICAL EXAMINATION: GENERAL: Well-appearing, well-nourished and in no acute distress. HEAD: Atraumatic, normocephalic. EYES: Pupils equal round and reactive to light, extraocular movements intact, sclera anicteric, conjunctiva are normal. ENT: nares patent, oropharynx clear without exudates. Moist mucous membranes. NECK: Normal range of motion, supple without lymphadenopathy LUNGS: Breath sounds clear to auscultation bilaterally and equal. No wheezes rales or rhonchi. HEART: Regular rate and rhythm without murmurs ABDOMEN: Soft, nontender, normoactive bowel sounds. No guarding, no rebound. No masses appreciated. EXTREMITIES: Normal range of motion, no pitting or edema. No cyanosis. NEUROLOGICAL: No focal neurological deficits. Moves all extremities spontaneously and on command. PSYCH: Normal mood, normal affect. SKIN: Warm, Dry, normal turgor, no rashes or lesions noted. Course - Re-evaluation Re-evalutation: 02/09/17 22:26 Presentation of chest pain in an otherwise well appearing patient. Low clinical suspicion for ACS given clinical history, exam, EKG without ST elevations or patient unfortunately had a cardiac catheterization in August of this year in which an arterial laceration occurred and he had 4 stents placed for repair of that laceration did not have any evidence of coronary artery disease. Depressions, and negative initial troponin. This is very reassuring and patient has had recurrent chest pain both before and after this negative catheterization. HEART score less than or equal to 3. PE also seems unlikely given clinical history, absence of tachycardia or dyspnea. Patient is PERC criteria negative. CXR without evidence of pneumothorax or pneumonia. No widened mediastinum. Aortic dissection also seems unlikely given history, symmetric pulses, CXR, and vitals. Patient symptoms overall appear much more esophageal in origin. Will treat with H2 blockers and dietary modification. At this time will discharge with return precautions and follow-up recommendations. Verbal discharge instructions given a the bedside and opportunity for questions given. Medication warnings reviewed. Patient is in agreement with this plan and has verbalized understanding of return precautions and the need for primary care follow-up in the next 24-72 hours. HEART Score: History:0 EC Age:0 Risk Factors:1 Troponin:0 Total: 1 - Vital Signs Vital signs: Temp Pulse Resp BP Pulse Ox 98.7 F 64 20 117/68 96 02/09/17 20:23 02/09/17 20:23 02/09/17 20:23 02/09/17 20:23 02/09/17 20:23 - Laboratory Result Diagrams: 02/09/17 20:55 02/09/17 20:55 Laboratory results interpreted by me: 02/09/17 02/09/17 20:55 20:55 RDW 14.7 H Sodium 145.2 H - Diagnostic Test Radiology reviewed: Image reviewed, Reports reviewed Radiology results interpreted by me: 02/09/17 22:28 Chest x-ray: No acute infiltrate or pneumothorax - EKG Interpretation by Me Additional EKG results interpreted by me: 02/09/17 22:28 Normal sinus rhythm. Rate 63. No ST elevations or depressions. QTC is 430. Discharge - Discharge Clinical Impression: Chest pain Qualifiers: Chest pain type: unspecified Qualified Code(s): R07.9 - Chest pain, unspecified Disposition: HOME, SELF-CARE Additional Instructions: You were seen today for chest pain. The exact cause of your pain is unclear but may be due to your esophagus. However, based on your cardiac enzyme testing , chest x-ray, and EKG it does not appear that it is from an immediately life- threatening cause at this time. Please begin taking famotidine 40 mg in the morning and 40 mg at night. This medicine can be purchased directly over-the- counter. You may also take medicine such as Pepto-Bismol or Tums to assist with your pain. Please return to emergency department immediately if you have worsening of your chest pain, shortness of breath, vomiting, become unable to exert yourself due to pain or difficulty breathing, you pass out, or have any pain that radiates into your arms, jaw, or back. Please also return if you have any additional symptoms that are concerning to you. Forms: Return to Work Referrals: DERECK MONTERO PA-C [Primary Care Provider] - Follow up as needed
--- NOTE | 2017-02-10 19:42 | EKG REPORT ---
SEVERITY:- NORMAL ECG - SINUS RHYTHM : Confirmed by: Any Limon MD 10-Feb-2017 19:41:46
== END 2017-02-09 23:05 | disposition home or self-care (01) ==
LOC: ER 20:02
DX: R07.9 Chest pain, unspecified (principal); R06.02 Shortness of breath; Z88.6 Allergy status to analgesic agent; I25.2 Old myocardial infarction
CPT/HCPCS: 93005; 99285; 36415; 85025; 80048; 84484; 71010; 93010; J3490

== ENCOUNTER → 2017-03-11 | Outpatient (CLI) | payer OTHER, MEDICARE, MEDICAID ==
--- NOTE | 2017-03-11 13:27 | RADIOLOGY REPORT (SQ) ---
EXAM DESCRIPTION: FOOT RIGHT COMPLETE COMPLETED DATE/TIME: 03/11/2017 10:11 am REASON FOR STUDY: UNSPEC. INJURY TO RT FOOT dropped something heavy on foot, now with tingling in th e toes COMPARISON: None. NUMBER OF VIEWS: Three views. TECHNIQUE: AP, lateral and oblique radiographic images acquired of the right foot. LIMITATIONS: None. FINDINGS: MINERALIZATION: Normal. BONES: No acute fracture or dislocation. No worrisome bone lesions. JOINTS: No effusions. SOFT TISSUES: No soft tissue swelling. No foreign body. OTHER: No other significant finding. IMPRESSION: NEGATIVE STUDY OF THE RIGHT FOOT. NO RADIOGRAPHIC EVIDENCE OF ACUTE INJURY. TECHNICAL DOCUMENTATION: JOB ID: [id number] [employer]- All Rights Reserved
== END ==
LOC: OD 09:45
PROVIDERS: ATTEND Family Medicine
DX: S99.921A Unspecified injury of right foot, initial encounter (principal); X58.XXXA Exposure to other specified factors, initial encounter

== ENCOUNTER 2017-03-16 20:43 | Emergency (ER) | payer OTHER, MEDICARE, MEDICAID ==
[2017-03-16] MEDS ORDERED: SULFAMETHOXAZOLE/TRIMETHOPRIM 800-160 MG TABLET PO ONE (21:01)
[2017-03-16] MEDS ORDERED: OXYCODONE-ACETAMINOPHEN 5-325 MG TABLET PO ONE (21:01)
--- NOTE | 2017-03-16 21:01 | ER Document Report ---
ED Extremity Problem, Lower - General Chief Complaint: Foot Pain Stated Complaint: RIGHT FOOT INJURY Time Seen by Provider: 03/16/17 20:55 Notes: Patient is a 36-year-old male who presents emergency department complaining of 2 weeks of foot pain. Patient states that he saw his primary care doctor last week who put him on Keflex sent in for a foot x-ray. States he has been having redness and swelling over his foot in between his fourth and fifth toe. States that it is since come to ahead without active drainage over the past couple of days. TRAVEL OUTSIDE OF THE [place] IN LAST 30 DAYS: No - Related Data Allergies/Adverse Reactions: baclofen [Baclofen] Allergy (Severe, Verified 11/19/16 08:39) Coma rabeprazole sodium [From Aciphex] Allergy (Severe, Verified 11/19/16 08:39) Severe sweating, turned red tramadol HCl [From Ultram] Allergy (Severe, Verified 11/19/16 08:39) Severe N&V nickel [Nickel] Allergy (Intermediate, Verified 11/19/16 08:39) sore, blister hydrocodone bitartrate [From Vicodin] Allergy (Mild, Verified 11/19/16 08:39) RASH acetaminophen [From Tylenol] Allergy (Verified 02/05/17 14:22) Past Medical History - Social History Smoking Status: Smoker,Current Status Unk Family History: DM, Thyroid Disfunction, Other - tachycardia/ablation - Past Medical History Cardiac Medical History: Reports: Hx Heart Attack Denies: Hx Coronary Artery Disease, Hx Hypertension Pulmonary Medical History: Reports: Hx Asthma - Last attack over 10 years ago Denies: Hx Bronchitis, Hx COPD, Hx Pneumonia, Hx Tuberculosis Neurological Medical History: Reports: Hx Seizures - hx of, pt states last seizure at age 12. Denies: Hx Cerebrovascular Accident Renal/ Medical History: Denies: Hx Peritoneal Dialysis Musculoskeltal Medical History: Reports Hx Arthritis, Denies Hx Fibromyalgia, Denies Hx Multiple Sclerosis, Denies Hx Muscular Dystrophy, Reports Hx Muscle Weakness, Reports Hx Musculoskeletal Deformity, Reports Hx Musculoskeletal Trauma Psychiatric Medical History: Denies: Hx Dementia Traumatic Medical History: Denies: Hx Fractures Past Surgical History: Reports: Hx Orthopedic Surgery - left foot. Denies: Hx Appendectomy, Hx Bowel Surgery, Hx Cholecystectomy, Hx Coronary Artery Bypass Graft, Hx Gastric Bypass Surgery, Hx Herniorrhaphy, Hx Pacemaker, Hx Tonsillectomy - Immunizations Immunizations up to date: Yes Hx Diphtheria, Pertussis, Tetanus Vaccination: Yes Review of Systems - Review of Systems Constitutional: No symptoms reported Musculoskeletal: See HPI Skin: See HPI -: Yes All other systems reviewed and negative Physical Exam - Vital signs Vitals: Temp Pulse Resp BP Pulse Ox 98.6 F 77 20 132/67 H 97 03/16/17 20:48 03/16/17 20:48 03/16/17 20:48 03/16/17 20:48 03/16/17 20:48 - Notes Notes: PHYSICAL EXAM GENERAL: Alert, interacts well. EXTREMITIES: Moves all 4 extremities spontaneously. No edema, radial and dorsalis pedis pulses 2/4 bilaterally. No cyanosis. NEUROLOGICAL: Alert and oriented x4. Normal speech. PSYCH: Normal affect, normal mood. SKIN: Warm, dry, normal turgor. abscess at the base of the 4th and 5th toes on the right foot wiht minimal surrounding erythema Course - Re-evaluation Re-evalutation: 03/16/17 22:30 Patient is a 36-year-old male who is hemodynamically stable, no acute distress and afebrile. Presentation is consistent with an abscess. Patient without evidence of track wilde or other sites for IV drug use. Patient states that he does have a hole in his work boots that the cyst could be consistent with possible spider bite versus foreign body injury. X-ray. No evidence of concern for this. I&D performed at the bedside which was tolerated well, wound culture sent. Patient's initiated on antibiotics to cover for MRSA. - Vital Signs Vital signs: Temp Pulse Resp BP Pulse Ox 98.6 F 61 18 136/74 H 97 03/16/17 20:48 03/16/17 22:37 03/16/17 22:37 03/16/17 22:37 03/16/17 22:37 - Diagnostic Test Radiology reviewed: Image reviewed, Reports reviewed Procedures - Incision and Drainage Right Foot Type: Simple mL's of anesthetic: 0 Blade size: 11 I&D procedure: Betadine prep applied Incision Method: Incision made by scalpel Amount/type of drainage: 3cc purlent drainage Discharge - Discharge Clinical Impression: Abscess Condition: Good Disposition: HOME, SELF-CARE Instructions: Abscess ([facility]), Post Incision and Drainage, Trimethoprim-Sulfa ( [facility]) Prescriptions: Oxycodone HCl/Acetaminophen [Percocet 5-325 mg Tablet] 1 tab PO Q6HP PRN #10 tab PRN Reason: Sulfamethoxazole/Trimethoprim [Bactrim Ds Tablet] 1 each PO BID #10 tablet Referrals: ERASTO CESAR MD [ACTIVE STAFF] - Follow up in 3-5 days
--- NOTE | 2017-03-16 21:42 | RADIOLOGY REPORT (SQ) ---
EXAM DESCRIPTION: FOOT RIGHT COMPLETE COMPLETED DATE/TIME: 03/16/2017 9:19 pm REASON FOR STUDY: abscess between 4th 5th metatarsal, pain COMPARISON: 03/11/2017 NUMBER OF VIEWS: Three views. TECHNIQUE: AP, lateral and oblique radiographic images acquired of the right foot. LIMITATIONS: None. FINDINGS: MINERALIZATION: Normal. BONES: No acute fracture or dislocation. No worrisome bone lesions. JOINTS: No effusions. SOFT TISSUES: Mild soft tissue swelling. No foreign body. OTHER: No other significant finding. IMPRESSION: No osseous abnormality. TECHNICAL DOCUMENTATION: JOB ID: [id number] [employer]- All Rights Reserved
[2017-03-16 22:39] VITALS: BP 136/74
== END 2017-03-16 22:39 | disposition home or self-care (01) ==
LOC: ER 20:43
PROC: 0H9MXZZ Drainage of Right Foot Skin, External Approach (ICD-10-PCS; principal; 2017-03-16)
DX: L02.611 Cutaneous abscess of right foot (principal); M79.671 Pain in right foot; M79.89 Other specified soft tissue disorders; F17.200 Nicotine dependence, unspecified, uncomplicated
CPT/HCPCS: 87070; 87075; 87077; 87205; 99284

== ENCOUNTER 2017-05-17 21:54 | Emergency (ER) | payer MEDICARE, OTHER, MEDICAID ==
[2017-05-17] MEDS ORDERED: CYCLOBENZAPRINE HCL 10 MG TABLET PO ONE (22:54)
[2017-05-17] MEDS ORDERED: KETOROLAC TROMETHAMINE 60 MG/2 ML SDV IM ONE (22:54)
[2017-05-17] MEDS ORDERED: DEXAMETHASONE SOD PHOS INJ 10 MG/1 ML VIAL IM ONE (22:54)
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
--- NOTE | 2017-05-17 23:47 | RADIOLOGY REPORT (SQ) ---
EXAM DESCRIPTION: L SPINE WHOLE CLINICAL HISTORY: 36 years, Male, back injury at work COMPARISON: None. NUMBER OF VIEWS: 5 LIMITATIONS: None. Findings: Normal alignment and curvature. Mild lower thoracic disc desiccation. Vertebral and intervertebral heights are maintained. Extraspinal structures are grossly intact. Right upper abdominal clips. IMPRESSION: Intact lumbar spine.
[2017-05-18] MEDS ORDERED: OXYCODONE HCL IR 5 MG TABLET PO ONE (00:12)
[2017-05-18 00:31] VITALS: BP 109/54
== END 2017-05-18 00:34 | disposition home or self-care (01) ==
LOC: ER 21:54
DX: M54.42 Lumbago with sciatica, left side (principal); X58.XXXA Exposure to other specified factors, initial encounter; F17.210 Nicotine dependence, cigarettes, uncomplicated; Y99.0 Civilian activity done for income or pay; Z88.6 Allergy status to analgesic agent; I25.2 Old myocardial infarction
CPT/HCPCS: 99406; 99283; 96372; 72110; A9270 ×2; J1885; J1100

== ENCOUNTER 2017-08-08 02:39 | Emergency (ER) | payer OTHER, MEDICARE, MEDICAID ==
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
[2017-08-08 06:10] VITALS: BP 106/59
--- NOTE | 2017-08-08 16:20 | EKG REPORT ---
SEVERITY:- BORDERLINE ECG - SINUS RHYTHM BORDERLINE T ABNORMALITIES, INFERIOR LEADS : Confirmed by: Jada Rosen 08-Aug-2017 16:19:44
== END 2017-08-08 06:11 | disposition home or self-care (01) ==
LOC: ER 02:39
DX: R07.9 Chest pain, unspecified (principal); R10.9 Unspecified abdominal pain; F10.920 Alcohol use, unspecified with intoxication, uncomplicated; Y04.0XXA Assault by unarmed brawl or fight, initial encounter; F17.200 Nicotine dependence, unspecified, uncomplicated; I25.2 Old myocardial infarction; I10 Essential (primary) hypertension; J45.909 Unspecified asthma, uncomplicated
CPT/HCPCS: 71045; 74018; 93005; 93010; 99284

== ENCOUNTER → 2018-02-15 | Outpatient (CLI) | payer OTHER, MEDICARE ==
--- NOTE | 2018-02-15 11:58 | RADIOLOGY REPORT (SQ) ---
EXAM DESCRIPTION: U/S ABDOMEN COMPLETE W/O DOP COMPLETED DATE/TIME: 02/15/2018 11:47 am REASON FOR STUDY: ABD PAIN (R10.9) R10.9 UNSPECIFIED ABDOMINAL PAIN COMPARISON: 02/10/2013 TECHNIQUE: Dynamic and static grayscale images acquired of the abdomen and recorded on PACS. Additio nal selected color Doppler and spectral images recorded. LIMITATIONS: None. FINDINGS: PANCREAS: Visualized portions of the pancreas are unremarkable. The tail is obscured by o verlying bowel gas. LIVER: No masses. Echotexture normal. LIVER VASCULATURE: Normal directional flow of the main portal vein and hepatic veins. GALLBLADDER: Surgically absent. ULTRASOUND-DETECTED ESCUDERO'S SIGN: Negative. INTRAHEPATIC DUCTS AND COMMON DUCT: CBD and intrahepatic ducts normal caliber. No filling defects. INFERIOR VENA CAVA: Normal flow. AORTA: No aneurysm. RIGHT KIDNEY: Normal size. Normal echogenicity. No solid or suspicious masses. No hydronephros is. No calcifications. LEFT KIDNEY: Normal size. Normal echogenicity. No solid or suspicious masses. No hydronephrosi s. No calcifications. SPLEEN: Normal size. No solid masses. PERITONEAL AND PLEURAL SPACES: No ascites or effusions. OTHER: Evaluation of the umbilical region reveals no sonographic abnormalities. IMPRESSION: Prior cholecystectomy. No acute findings. TECHNICAL DOCUMENTATION: JOB ID: [id number]- All Rights Reserved Reading location - IP/workstation name: [email or web address]
== END ==
LOC: RAD 10:34
PROVIDERS: ATTEND Nurse Practitioner Family
DX: R10.9 Unspecified abdominal pain (principal); Z90.49 Acquired absence of other specified parts of digestive tract
CPT/HCPCS: 76700

== ENCOUNTER → 2019-01-27 | Outpatient (CLI) | payer MEDICARE, OTHER ==
[2019-01-27 09:54] LABS: APPEARANCE,URINE CLEAR; BILIRUBIN,URINE NEGATIVE (NEGATIVE); COLOR,URINE YELLOW; GLUCOSE, URINE NEGATIVE (NEGATIVE); KETONES,URINE NEGATIVE (NEGATIVE); LEUKOCYTE ESTERASE,URINE NEGATIVE (NEGATIVE); NITRITE,URINE NEGATIVE (NEGATIVE); PROTEIN,URINE NEGATIVE (NEGATIVE); URINE SPECIFIC GRAVITY 1.019
== END ==
LOC: OD 09:10
PROVIDERS: ATTEND Internal Medicine Cardiovascular Disease
DX: Z79.01 Long term (current) use of anticoagulants (principal); Z79.899 Other long term (current) drug therapy; R06.02 Shortness of breath
CPT/HCPCS: 81001; 82272

== ENCOUNTER 2019-02-27 10:35 | Emergency (ER) | payer MEDICARE, OTHER, MEDICAID ==
[2019-02-27] MEDS ORDERED: NORMAL SALINE 1000 ML 1,000 ML IV ONE (11:41)
--- NOTE | 2019-02-27 11:41 | ER Document Report ---
ED Medical Screen (RME) - General Chief Complaint: Foot Pain Stated Complaint: RIGHT FOOT/TOE PAIN, SWELLING Time Seen by Provider: 02/27/19 11:37 Primary Care Provider: GAUDENCIO MARKHAM MD [Primary Care Provider] - Follow up as needed Mode of Arrival: Ambulatory Information source: Patient Notes: 38-year-old male presented to ED for pain redness swelling to the right foot. He states he is prediabetic. He does have a red inflamed swollen foot with blood noted to the between the fourth and fifth toe with a foul smell. He is drinking a regular Mountain Dew during his visit. We will get blood urine and x-ray to the foot for this infection. He is afebrile at this time. I have greeted and performed a rapid initial assessment of this patient. A comprehensive ED assessment and evaluation of the patient, analysis of test results and completion of medical decision making process will be conducted by an additional ED providers. TRAVEL OUTSIDE OF THE [place] IN LAST 30 DAYS: No - Related Data Allergies/Adverse Reactions: baclofen [Baclofen] Allergy (Severe, Verified 11/19/16 08:39) Coma rabeprazole sodium [From Aciphex] Allergy (Severe, Verified 11/19/16 08:39) Severe sweating, turned red tramadol HCl [From Ultram] Allergy (Severe, Verified 11/19/16 08:39) Severe N&V nickel [Nickel] Allergy (Intermediate, Verified 11/19/16 08:39) sore, blister hydrocodone bitartrate [From Vicodin] Allergy (Mild, Verified 11/19/16 08:39) RASH acetaminophen [From Tylenol] Allergy (Verified 02/05/17 14:22) Past Medical History - Past Medical History Cardiac Medical History: Reports: Hx Heart Attack, Hx Hypertension Pulmonary Medical History: Reports: Hx Asthma - Last attack over 10 years ago Neurological Medical History: Reports: Hx Seizures - hx of, pt states last seizure at age 12. Denies: Hx Parkinson's Disease Renal/ Medical History: Denies: Hx Peritoneal Dialysis Musculoskeltal Medical History: Reports Hx Arthritis, Reports Hx Muscle Weakness, Reports Hx Musculoskeletal Deformity, Reports Hx Musculoskeletal Trauma Past Surgical History: Reports: Hx Cardiac Catheterization, Hx Orthopedic Surgery - left foot, bilateral rotator cuff, c 5-6 fusion - Immunizations Immunizations up to date: Yes Hx Diphtheria, Pertussis, Tetanus Vaccination: Yes Doctor's Discharge - Discharge Referrals: GAUDENCIO MARKHAM MD [Primary Care Provider] - Follow up as needed
--- NOTE | 2019-02-27 12:39 | RADIOLOGY REPORT (SQ) ---
EXAM DESCRIPTION: FOOT RIGHT COMPLETE COMPLETED DATE/TIME: 02/27/2019 12:27 pm REASON FOR STUDY: Erythematous swollen right foot diabetic COMPARISON: None. NUMBER OF VIEWS: Three views. TECHNIQUE: AP, lateral and oblique radiographic images acquired of the right foot. LIMITATIONS: None. FINDINGS: MINERALIZATION: Normal. BONES: No acute fracture or dislocation. No worrisome bone lesions. JOINTS: No effusions. SOFT TISSUES: Soft tissue swelling. No foreign body. OTHER: No other significant finding. IMPRESSION: SOFT TISSUE SWELLING. NO OTHER SIGNIFICANT FINDINGS. TECHNICAL DOCUMENTATION: JOB ID: [id number] [employer]- All Rights Reserved Reading location - IP/workstation name: [email or web address]
[2019-02-27 12:45] LABS: ABSOLUTE BASOPHILS # (AUTO) 0.1 10^3/uL (0.0-0.2); ABSOLUTE EOSINOPHILS # (AUTO) 0.3 10^3/uL (0.0-0.6); ABSOLUTE LYMPHOCYTES (AUTO) 1.7 10^3/uL (0.5-4.7); ABSOLUTE MONOCYTES (AUTO) 0.7 10^3/uL (0.1-1.4); ABSOLUTE NEUT (AUTO) 6.2 10^3/uL (1.7-8.2); BASOPHILS % (AUTO) 0.6 % (0-2); EOSINOPHILS % (AUTO) 3.3 % (0-6); HEMATOCRIT 49.6 % (37.9-51.0); HEMOGLOBIN 16.8 g/dL (13.5-17.0); LYMPHOCYTES % (AUTO) 18.6 % (13-45); MEAN CORPUSCULAR HEMOGLOBIN 28.7 pg (27.0-33.4); MEAN CORPUSCULAR HGB CONC 33.9 g/dL (32.0-36.0); MEAN CORPUSCULAR VOLUME 85 fl (80-97); MONOCYTES % (AUTO) 7.3 % (3-13); PLATELET COUNT 200 10^3/uL (150-450); RED BLOOD COUNT 5.87 10^6/uL (4.35-5.55); RED CELL DISTRIBUTION WIDTH 14.8 % (11.5-14.0); SEGMENTED NEUTROPHILS % (AUTO) 70.2 % (42-78); TOTAL CELLS COUNTED % (AUTO) 100 %; WHITE BLOOD COUNT 8.9 10^3/uL (4.0-10.5)
[2019-02-27 13:07] LABS: APPEARANCE,URINE CLEAR; BILIRUBIN,URINE NEGATIVE (NEGATIVE); COLOR,URINE YELLOW; GLUCOSE, URINE NEGATIVE (NEGATIVE); KETONES,URINE NEGATIVE (NEGATIVE); PROTEIN,URINE NEGATIVE (NEGATIVE); URINE SPECIFIC GRAVITY 1.018
[2019-02-27 13:09] LABS: ALBUMIN 4.3 g/dL (3.5-5.0); ALKALINE PHOSPHATASE 103 U/L (38-126); ANION GAP 11 (5-19); ASPARTATE AMINO TRANSFERASE 35 U/L (17-59); BILIRUBIN,DIRECT 0.2 mg/dL (0.0-0.4); BILIRUBIN,TOTAL 0.6 mg/dL (0.2-1.3); BLOOD UREA NITROGEN 14 mg/dL (7-20); CALCIUM 9.2 mg/dL (8.4-10.2); CARBON DIOXIDE 25 mmol/L (22-30); CHLORIDE 107 mmol/L (98-107); GLUCOSE 139 mg/dL (75-110); POTASSIUM 4.2 mmol/L (3.6-5.0); TOTAL PROTEIN 7.3 g/dL (6.3-8.2)
[2019-02-27 13:16] LABS: BACTERIA,URINE TRACE /HPF
[2019-02-27 15:20] VITALS: BP 125/69
--- NOTE | 2019-02-27 15:46 | ER Document Report ---
HPI - HPI Time Seen by Provider: 02/27/19 11:37 Pain Level: 5 Notes: 38-year-old male patient presenting to the emergency department chief complaint of pain and redness to his right foot in between his fourth and fifth toes. He states he has to wear boots for work and that water gets into his boots while he is working causing a constantly moist environment. Patient is a diabetic. Patient denies any fevers. - CONSTITUTIONAL Constitutional: DENIES: Fever, Chills - REPRODUCTIVE Reproductive: DENIES: : - MUSCULOSKELETAL Musculoskeletal: REPORTS: Extremity pain - DERM Skin Color: Erythema Past Medical History - General Information source: Patient - Social History Smoking Status: Current Every Day Smoker Frequency of alcohol use: Occasional Family History: DM, Thyroid Disfunction, Other - tachycardia/ablation. denies: Arthritis, CAD, COPD, CVA, Hyperlipidemia, Hypertension, Malignancy Patient has suicidal ideation: No Patient has homicidal ideation: No - Past Medical History Cardiac Medical History: Reports: Hx Heart Attack, Hx Hypertension Pulmonary Medical History: Reports: Hx Asthma - Last attack over 10 years ago Neurological Medical History: Reports: Hx Seizures - hx of, pt states last se izure at age 12. Denies: Hx Parkinson's Disease Renal/ Medical History: Denies: Hx Peritoneal Dialysis Musculoskeletal Medical History: Reports Hx Arthritis, Reports Hx Muscle Weakness, Reports Hx Musculoskeletal Deformity, Reports Hx Musculoskeletal Trauma Past Surgical History: Reports: Hx Cardiac Catheterization, Hx Orthopedic Surgery - left foot, bilateral rotator cuff, c 5-6 fusion - Immunizations Immunizations up to date: Yes Hx Diphtheria, Pertussis, Tetanus Vaccination: Yes Vertical Provider Document - CONSTITUTIONAL Notes: PHYSICAL EXAMINATION: GENERAL: Well-appearing, well-nourished and in no acute distress. HEAD: Atraumatic, normocephalic. EYES: Pupils equal round extraocular movements intact, conjunctiva are normal. ENT: Nares patent NECK: Normal range of motion LUNGS: No respiratory distress Musculoskeletal: Normal range of motion NEUROLOGICAL: Normal speech, normal gait. PSYCH: Normal mood, normal affect. SKIN: Erythema with exudates noted between right fourth and fifth toes, no red streaking from the area, mild warmth noted. Strong dorsalis pedis pulse. - INFECTION CONTROL TRAVEL OUTSIDE OF THE [place] IN LAST 30 DAYS: No Course - Re-evaluation Re-evalutation: Patient appears well, nontoxic, lab work-up today was unremarkable. He does h ave a cellulitis between his fourth and fifth toe on the right foot. He will be started on oral antibiotics. I encouraged him to please try to allow his feet to air out if possible and to try to not allow his feet to get soaked in water while he is working. Strict ED return precautions were discussed, patient verbalized understanding and agreement with same. - Vital Signs Vital signs: Temp Pulse Resp BP Pulse Ox 97.8 F 54 L 16 125/69 98 02/27/19 15:13 02/27/19 15:13 02/27/19 15:13 02/27/19 15:13 02/27/19 15:13 - Laboratory Result Diagrams: 02/27/19 12:26 02/27/19 12:26 Laboratory results interpreted by me: 02/27/19 02/27/19 02/27/19 12:26 12:26 12:26 RBC 5.87 H RDW 14.8 H Glucose 139 H POC Glucose Urine Blood SMALL H Urine Urobilinogen 4.0 H 02/27/19 13:56 RBC RDW Glucose POC Glucose 136 H Urine Blood Urine Urobilinogen Discharge - Discharge Clinical Impression: Cellulitis Qualifiers: Site of cellulitis: other site Qualified Code(s): L03.818 - Cellulitis of other sites Condition: Stable Disposition: HOME, SELF-CARE Additional Instructions: Your work-up today was unremarkable. You do have cellulitis between your 2 toes. Is very important to try to allow this to air out over the next few days and not have a hot moist shoe covering the area. Please take antibiotics as prescribed. Return to the emergency department if you develop red streaking from the area, develop a fever or any other symptoms. Prescriptions: Cephalexin [Keflex] 500 mg PO QID #28 capsule Forms: Return to Work Referrals: GAUDENCIO MARKHAM MD [EMERITUS] - Follow up as needed
== END 2019-02-27 15:45 | disposition home or self-care (01) ==
LOC: ER 10:35
DX: L03.115 Cellulitis of right lower limb (principal); M79.671 Pain in right foot; I10 Essential (primary) hypertension; J45.909 Unspecified asthma, uncomplicated; F17.200 Nicotine dependence, unspecified, uncomplicated
CPT/HCPCS: 99283; 96360; 36415; 82962; 83690; 85025; 80053; 81001; 84484; 73630; J7030

== ENCOUNTER → 2019-03-14 | Outpatient (CLI) | payer MEDICARE, OTHER ==
[2019-03-14 11:22] LABS: ALKALINE PHOSPHATASE 97 U/L (38-126); ASPARTATE AMINO TRANSFERASE 37 U/L (17-59); BILIRUBIN,DIRECT 0.1 mg/dL (0.0-0.4); BILIRUBIN,TOTAL 1.4 mg/dL (0.2-1.3); CHOLESTEROL 136.04 mg/dL (0-200); TOTAL PROTEIN 6.7 g/dL (6.3-8.2); TRIGLYCERIDES 277 mg/dL (<150)
[2019-03-14 11:33] LABS: DIRECT LDL 80 mg/dL (<100)
[2019-03-14 11:34] LABS: VLDL CHOLESTEROL 55.4 mg/dL (10-31)
== END ==
LOC: OD 10:33
PROVIDERS: ATTEND Physician Assistant
DX: E78.2 Mixed hyperlipidemia (principal); R31.9 Hematuria, unspecified; Z79.899 Other long term (current) drug therapy
CPT/HCPCS: 36415; 80061; 80076

== ENCOUNTER → 2019-03-29 | Outpatient (CLI) | payer MEDICARE, OTHER ==
[2019-03-29 09:46] LABS: HEMATOCRIT 49.3 % (37.9-51.0); HEMOGLOBIN 16.5 g/dL (13.5-17.0); MEAN CORPUSCULAR HEMOGLOBIN 28.2 pg (27.0-33.4); MEAN CORPUSCULAR HGB CONC 33.4 g/dL (32.0-36.0); MEAN CORPUSCULAR VOLUME 84 fl (80-97); PLATELET COUNT 261 10^3/uL (150-450); RED BLOOD COUNT 5.86 10^6/uL (4.35-5.55); RED CELL DISTRIBUTION WIDTH 14.8 % (11.5-14.0); WHITE BLOOD COUNT 9.1 10^3/uL (4.0-10.5)
[2019-03-29 09:53] LABS: INTERNATIONAL RATION (INR) 0.97; PROTHROMBIN TIME 12.9 SEC (11.4-15.4)
[2019-03-29 09:54] LABS: PARTIAL THROMBOPLASTIN TIME 28.2 SEC (23.5-35.8)
[2019-03-29 10:23] LABS: ANION GAP 6 (5-19); BLOOD UREA NITROGEN 13 mg/dL (7-20); CALCIUM 9.3 mg/dL (8.4-10.2); CARBON DIOXIDE 28 mmol/L (22-30); CHLORIDE 105 mmol/L (98-107); GLUCOSE 101 mg/dL (75-110); POTASSIUM 4.3 mmol/L (3.6-5.0)
== END ==
LOC: OD 09:16
PROVIDERS: ATTEND Physician Assistant
DX: Z01.810 Encounter for preprocedural cardiovascular examination (principal); R07.89 Other chest pain; Z79.01 Long term (current) use of anticoagulants
CPT/HCPCS: 36415; 80048; 85027; 85610; 85730

== ENCOUNTER 2019-04-10 22:56 | Emergency (ER) | payer MEDICARE, OTHER, MEDICAID ==
[2019-04-10 23:30] LABS: ABSOLUTE BASOPHILS # (AUTO) 0.1 10^3/uL (0.0-0.2); ABSOLUTE EOSINOPHILS # (AUTO) 0.1 10^3/uL (0.0-0.6); ABSOLUTE MONOCYTES (AUTO) 0.8 10^3/uL (0.1-1.4); ABSOLUTE NEUT (AUTO) 6.8 10^3/uL (1.7-8.2); BASOPHILS % (AUTO) 0.5 % (0-2); EOSINOPHILS % (AUTO) 1.3 % (0-6); HEMATOCRIT 52.5 % (37.9-51.0); HEMOGLOBIN 17.6 g/dL (13.5-17.0); LYMPHOCYTES % (AUTO) 20.3 % (13-45); MEAN CORPUSCULAR HEMOGLOBIN 28.3 pg (27.0-33.4); MEAN CORPUSCULAR HGB CONC 33.5 g/dL (32.0-36.0); MEAN CORPUSCULAR VOLUME 84 fl (80-97); PLATELET COUNT 229 10^3/uL (150-450); RED BLOOD COUNT 6.22 10^6/uL (4.35-5.55); RED CELL DISTRIBUTION WIDTH 14.9 % (11.5-14.0); SEGMENTED NEUTROPHILS % (AUTO) 69.9 % (42-78); TOTAL CELLS COUNTED % (AUTO) 100 %; WHITE BLOOD COUNT 9.7 10^3/uL (4.0-10.5)
[2019-04-10 23:50] LABS: ALBUMIN 3.5 g/dL (3.5-5.0); ALKALINE PHOSPHATASE 81 U/L (38-126); ANION GAP 7 (5-19); ASPARTATE AMINO TRANSFERASE 30 U/L (17-59); BILIRUBIN,TOTAL 0.5 mg/dL (0.2-1.3); BLOOD UREA NITROGEN 12 mg/dL (7-20); CALCIUM 8.8 mg/dL (8.4-10.2); CARBON DIOXIDE 26 mmol/L (22-30); CHLORIDE 106 mmol/L (98-107); CREATINE KINASE 80 U/L (55-170); GLUCOSE 103 mg/dL (75-110); POTASSIUM 3.9 mmol/L (3.6-5.0); TOTAL PROTEIN 5.9 g/dL (6.3-8.2)
[2019-04-11 00:04] LABS: CREATINE KINASE MB 0.85 ng/mL (<4.55)
[2019-04-11 00:14] LABS: TROPONIN I < 0.012 ng/mL
[2019-04-11 01:37] LABS: APPEARANCE,URINE CLEAR; BILIRUBIN,URINE NEGATIVE (NEGATIVE); COLOR,URINE YELLOW; GLUCOSE, URINE NEGATIVE (NEGATIVE); KETONES,URINE TRACE mg/dL (NEGATIVE); LEUKOCYTE ESTERASE,URINE NEGATIVE (NEGATIVE); NITRITE,URINE NEGATIVE (NEGATIVE); PROTEIN,URINE NEGATIVE (NEGATIVE); URINE SPECIFIC GRAVITY 1.014
[2019-04-11] MEDS ORDERED: NORMAL SALINE 1000 ML 1,000 ML IV ONE (03:03)
--- NOTE | 2019-04-11 03:04 | ER Document Report ---
ED General - General Chief Complaint: Fainting Stated Complaint: SYNCOPE Time Seen by Provider: 04/11/19 02:55 Primary Care Provider: GAUDENCIO MARKHAM MD [EMERITUS] - Follow up in 3-5 days Notes: Patient is a 38-year-old male that comes emergency department for chief complaint of passing out. Patient states he was at the bar drinking, he states he was trying to "pace my beers", however he states he stood up, felt lighthe aded, and then passed out landing on his lower back. He denies hitting his head, headache, vomiting, he denies chest pain. He denies any current symptoms. Patient came by EMS. Patient does state that he has a history of an CT that occurred from a complication when he was having a diagnostic cardiac cath and they had to place a stent. He denies history of hypertension, hyperlipidemia, diabetes, or any other medical history. He denies recreational drugs. TRAVEL OUTSIDE OF THE [place] IN LAST 30 DAYS: No - Related Data Allergies/Adverse Reactions: baclofen [Baclofen] Allergy (Severe, Verified 11/19/16 08:39) Coma rabeprazole sodium [From Aciphex] Allergy (Severe, Verified 11/19/16 08:39) Severe sweating, turned red tramadol HCl [From Ultram] Allergy (Severe, Verified 11/19/16 08:39) Severe N&V nickel [Nickel] Allergy (Intermediate, Verified 11/19/16 08:39) sore, blister hydrocodone bitartrate [From Vicodin] Allergy (Mild, Verified 11/19/16 08:39) RASH acetaminophen [From Tylenol] Allergy (Verified 02/05/17 14:22) Home Medications: asa. brilinta. metoprolol. lipitor Past Medical History - General Information source: Patient - Social History Smoking Status: Current Every Day Smoker Chew tobacco use (# tins/day): No Smoking Education Provided: Yes - <3 min Frequency of alcohol use: Social Drug Abuse: None Lives with: Family Family History: DM, Thyroid Disfunction, Other - tachycardia/ablation. denies: Arthritis, CAD, COPD, CVA, Hyperlipidemia, Hypertension, Malignancy Patient has suicidal ideation: No Patient has homicidal ideation: No - Past Medical History Cardiac Medical History: Reports: Hx Heart Attack, Hx Hypertension Pulmonary Medical History: Reports: Hx Asthma - Last attack over 10 years ago Neurological Medical History: Reports: Hx Seizures - hx of, pt states last seizure at age 12. Denies: Hx Parkinson's Disease Renal/ Medical History: Denies: Hx Peritoneal Dialysis Musculoskeletal Medical History: Reports Hx Arthritis, Reports Hx Muscle Weakness, Reports Hx Musculoskeletal Deformity, Reports Hx Musculoskeletal Trauma Past Surgical History: Reports: Hx Cardiac Catheterization, Hx Orthopedic Surgery - left foot, bilateral rotator cuff, c 5-6 fusion - Immunizations Immunizations up to date: Yes Hx Diphtheria, Pertussis, Tetanus Vaccination: Yes Review of Systems - Review of Systems Constitutional: See HPI EENT: No symptoms reported Cardiovascular: See HPI Respiratory: No symptoms reported Gastrointestinal: No symptoms reported Genitourinary: No symptoms reported Male Genitourinary: No symptoms reported Musculoskeletal: See HPI Skin: No symptoms reported Hematologic/Lymphatic: No symptoms reported Neurological/Psychological: See HPI Physical Exam - Vital signs Vitals: Temp Pulse Resp BP Pulse Ox 97.9 F 61 16 117/71 99 04/10/19 23:10 04/10/19 23:10 04/10/19 23:10 04/10/19 23:10 04/10/19 23:10 - Notes Notes: GENERAL: Alert, interacts well. No acute distress. HEAD: Normocephalic, atraumatic. EYES: Pupils equal, round, and reactive to light. Extraocular movements intact. ENT: Oral mucosa moist, tongue midline. Oropharynx unremarkable. Airway patent. LUNGS: Clear to auscultation bilaterally, no wheezes, rales, or rhonchi. No respiratory distress. HEART: Regular rate and rhythm. No murmur ABDOMEN: Soft, non-tender. Non-distended. Bowel sounds present in all 4 quadrants. GENITOURINARY: Deferred EXTREMITIES: Moves all 4 extremities spontaneously. No edema, normal radial and dorsalis pedis pulses bilaterally. No cyanosis. BACK: No signs of trauma. No cervical, thoracic, lumbar midline tenderness. No saddle anesthesia, normal distal neurovascular exam. Moves all extremities in full range of motion. NEUROLOGICAL: Alert and oriented x3. Normal speech. Cranial nerves II through XII grossly intact. PSYCH: Normal affect, normal mood. SKIN: Warm, dry, normal turgor. No rashes or lesions noted. Course - Re-evaluation Re-evalutation: CBC with some elevated hemoglobin in the setting of a smoking patient. Chemistry unremarkable, troponin negative. Alcohol is low now. Patient is not clinically intoxicated on exam. Vital signs unremarkable. Patient was given IV fluids. Patient stood without dizziness, orthostatic vital signs normal, EKG without significant change from prior. Troponin cycled and negative. Patient has had no chest pain, he is only here for passing out. I explained because patient is on a blood thinner and he passed out along with drinking alcohol he probably hit his head, patient insisted multiple times that he did not hit his head, he does not have a headache, and he does not want his brain scan. Patient does not have any evidence of trauma over the head or any tender areas, he has no headache as well. As result I suspect patient is telling the truth and he did not hit his head. No neurological deficits. Patient has good cardiology follow-up. Patient states once before he got lightheaded and he is wondering why. 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 Discussed expectations and return precautions. Patient states appreciation and agreement. Stable at time of discharge - Vital Signs Vital signs: Temp Pulse Resp BP Pulse Ox 98 F 62 16 107/83 100 04/11/19 05:01 04/10/19 23:15 04/11/19 05:01 04/11/19 05:01 04/11/19 05:01 - Laboratory Result Diagrams: 04/10/19 23:20 04/10/19 23:20 Laboratory results interpreted by me: 04/10/19 04/10/19 04/11/19 23:20 23:20 01:05 RBC 6.22 H Hgb 17.6 H Hct 52.5 H RDW 14.9 H Total Protein 5.9 L Urine Ketones TRACE H Urine Blood SMALL H Urine Urobilinogen 2.0 H - EKG Interpretation by Me Additional EKG results interpreted by me: EKG shows sinus rhythm at a rate of 57. T wave inversion in lead III, no T wave inversions or ST segment changes in consecutive leads. No significant change from prior. QTC 443. Discharge - Discharge Clinical Impression: Episode of syncope Qualifiers: Syncope type: vasovagal syncope Qualified Code(s): R55 - Syncope and collapse Condition: Stable Disposition: HOME, SELF-CARE Additional Instructions: The exact cause of your passing out is uncertain at this time but your work-up and evaluation tonight do not show any concerning findings. Follow-up closely with your service parts driver for additional evaluation of dizziness and passing out. Return if you worsen including developing chest pain, passing out again, vomiting, fever, or any other concerning symptoms. Forms: Return to Work Referrals: GAUDENCIO MARKHAM MD [EMERITUS] - Follow up in 3-5 days
[2019-04-11 03:43] LABS: URINE AMPHETAMINES SCREEN NEGATIVE; URINE BARBITURATES SCREEN NEGATIVE; URINE BENZODIAZEPINES SCREEN NEGATIVE; URINE COCAINE SCREEN NEGATIVE; URINE METHADONE SCREEN NEGATIVE; URINE PHENCYCLIDINE SCREEN NEGATIVE
[2019-04-11 03:44] LABS: URINE MARIJUANA (THC) SCREEN UNCONFIRMED POSITIVE
[2019-04-11 05:13] VITALS: BP 107/83
--- NOTE | 2019-04-11 07:24 | EKG REPORT ---
SEVERITY:- BORDERLINE ECG - SINUS RHYTHM BORDERLINE LEFT AXIS DEVIATION BORDERLINE T ABNORMALITIES, INFERIOR LEADS : Confirmed by: Manfred Alvarez MD 11-Apr-2019 07:23:31
== END 2019-04-11 05:13 | disposition home or self-care (01) ==
LOC: ER 22:56
DX: R55 Syncope and collapse (principal); F17.200 Nicotine dependence, unspecified, uncomplicated; I10 Essential (primary) hypertension; I25.2 Old myocardial infarction; Z88.6 Allergy status to analgesic agent; Z98.1 Arthrodesis status
CPT/HCPCS: 93005; 99284; 96360; 36415; 82553; 80307 ×2; 82550; 85025; 80053; 81001; 84484; 93010; J7030

== ENCOUNTER → 2019-07-03 | Outpatient (CLI) | payer MEDICARE, OTHER, MEDICAID ==
[2019-07-03 10:02] LABS: ALBUMIN 3.9 g/dL (3.5-5.0); ALKALINE PHOSPHATASE 83 U/L (38-126); ANION GAP 5 (5-19); ASPARTATE AMINO TRANSFERASE 38 U/L (17-59); BILIRUBIN,TOTAL 0.4 mg/dL (0.2-1.3); BLOOD UREA NITROGEN 9 mg/dL (7-20); CALCIUM 9.1 mg/dL (8.4-10.2); CARBON DIOXIDE 28 mmol/L (22-30); CHLORIDE 106 mmol/L (98-107); CHOLESTEROL 151.18 mg/dL (0-200); GLUCOSE 111 mg/dL (75-110); POTASSIUM 4.2 mmol/L (3.6-5.0); TOTAL PROTEIN 6.8 g/dL (6.3-8.2); TRIGLYCERIDES 311 mg/dL (<150)
[2019-07-03 10:13] LABS: DIRECT LDL 86 mg/dL (<100)
[2019-07-03 10:15] LABS: VLDL CHOLESTEROL 62.2 mg/dL (10-31)
== END ==
LOC: OD 09:00
PROVIDERS: ATTEND Physician Assistant
DX: E78.2 Mixed hyperlipidemia (principal); R60.9 Edema, unspecified; R06.00 Dyspnea, unspecified; Z79.899 Other long term (current) drug therapy
CPT/HCPCS: 36415; 80048; 80061; 80076; 83880

== ENCOUNTER → 2019-10-02 | Outpatient (CLI) | payer MEDICARE, OTHER, MEDICAID ==
[2019-10-02 10:57] LABS: APPEARANCE,URINE SLIGHTLY-CLOUDY; BILIRUBIN,URINE NEGATIVE (NEGATIVE); COLOR,URINE YELLOW; GLUCOSE, URINE NEGATIVE (NEGATIVE); KETONES,URINE TRACE mg/dL (NEGATIVE); LEUKOCYTE ESTERASE,URINE NEGATIVE (NEGATIVE); NITRITE,URINE NEGATIVE (NEGATIVE); PROTEIN,URINE NEGATIVE (NEGATIVE); URINE SPECIFIC GRAVITY 1.027
[2019-10-02 11:05] LABS: ALBUMIN 4.1 g/dL (3.5-5.0); ALKALINE PHOSPHATASE 83 U/L (38-126); ANION GAP 5 (5-19); ASPARTATE AMINO TRANSFERASE 28 U/L (17-59); BILIRUBIN,TOTAL 0.6 mg/dL (0.2-1.3); BLOOD UREA NITROGEN 18 mg/dL (7-20); CALCIUM 9.5 mg/dL (8.4-10.2); CARBON DIOXIDE 25 mmol/L (22-30); CHLORIDE 109 mmol/L (98-107); GLUCOSE 127 mg/dL (75-110); POTASSIUM 4.2 mmol/L (3.6-5.0); TOTAL PROTEIN 6.8 g/dL (6.3-8.2); TRIGLYCERIDES 431 mg/dL (<150)
[2019-10-02 11:16] LABS: DIRECT LDL 68 mg/dL (<100)
== END ==
LOC: OD 10:03
PROVIDERS: ATTEND Physician Assistant
DX: E78.2 Mixed hyperlipidemia (principal); R60.9 Edema, unspecified; R31.9 Hematuria, unspecified; Z79.899 Other long term (current) drug therapy
CPT/HCPCS: 36415; 80048; 80061; 80076; 81001

== ENCOUNTER 2019-10-09 22:04 | Emergency (ER) | payer MEDICARE, MEDICAID ==
[2019-10-09 22:20] VITALS: BP 143/72
== END 2019-10-10 01:05 | disposition left against medical advice (07) ==
LOC: ER 22:04
DX: Z53.21 Procedure and treatment not carried out due to patient leaving prior to being seen by health care provider (principal)

== ENCOUNTER → 2020-01-02 | Outpatient (CLI) | payer OTHER, MEDICARE, MEDICAID ==
[2020-01-02 12:50] LABS: ALBUMIN 4.8 g/dL (3.5-5.0); ALKALINE PHOSPHATASE 121 U/L (38-126); ANION GAP 14 (5-19); ASPARTATE AMINO TRANSFERASE 33 U/L (17-59); BILIRUBIN,DIRECT 0.4 mg/dL (0.0-0.4); BILIRUBIN,TOTAL 0.7 mg/dL (0.2-1.3); BLOOD UREA NITROGEN 9 mg/dL (7-20); CALCIUM 9.5 mg/dL (8.4-10.2); CARBON DIOXIDE 26 mmol/L (22-30); CHLORIDE 102 mmol/L (98-107); CHOLESTEROL 120.61 mg/dL (0-200); GLUCOSE 119 mg/dL (75-110); TRIGLYCERIDES 209 mg/dL (<150)
[2020-01-02 13:01] LABS: DIRECT LDL 65 mg/dL (<100)
[2020-01-02 13:03] LABS: VLDL CHOLESTEROL 41.8 mg/dL (10-31)
== END ==
LOC: OD 09:04
PROVIDERS: ATTEND Physician Assistant
DX: E78.2 Mixed hyperlipidemia (principal); R73.09 Other abnormal glucose; Z79.899 Other long term (current) drug therapy
CPT/HCPCS: 36415; 80048; 80061; 80076

== ENCOUNTER 2020-03-04 12:53 | Emergency (ER) | payer OTHER, MEDICARE, MEDICAID ==
--- NOTE | 2020-03-04 13:08 | ER Document Report ---
ED Medical Screen (RME) - General Chief Complaint: Flank Pain Stated Complaint: SIDE PAIN Time Seen by Provider: 03/04/20 13:00 Primary Care Provider: PARAMJIT STILL PA-C [Primary Care Provider] - Follow up as needed Notes: Patient is a 39-year-old male who presents to the emergency department for bruising to his left hip/flank area. Patient is currently on Brilinta. He has history of an ID in the past. States that he noticed the bruising yesterday. Exam: Ecchymosis noted to the left hip/flank area. I have greeted and performed a rapid initial assessment of this patient. A comprehensive ED assessment and evaluation of the patient, analysis of test results and completion of medical decision making process will be conducted by an additional ED providers. TRAVEL OUTSIDE OF THE [place] IN LAST 30 DAYS: No - Related Data Allergies/Adverse Reactions: baclofen [Baclofen] Allergy (Severe, Verified 10/09/19 23:39) Coma rabeprazole sodium [From Aciphex] Allergy (Severe, Verified 10/09/19 23:39) Severe sweating, turned red tramadol HCl [From Ultram] Allergy (Severe, Verified 10/09/19 23:39) Severe N&V nickel [Nickel] Allergy (Intermediate, Verified 10/09/19 23:39) sore, blister hydrocodone bitartrate [From Vicodin] Allergy (Mild, Verified 10/09/19 23:39) RASH acetaminophen [From Tylenol] Allergy (Verified 10/09/19 23:39) Past Medical History - Past Medical History Cardiac Medical History: Reports: Hx Heart Attack, Hx Hypertension Pulmonary Medical History: Reports: Hx Asthma - Last attack over 10 years ago Neurological Medical History: Reports: Hx Seizures - hx of, pt states last seizure at age 12. Denies: Hx Parkinson's Disease Renal/ Medical History: Denies: Hx Peritoneal Dialysis Musculoskeltal Medical History: Reports Hx Arthritis, Reports Hx Muscle Weakness, Reports Hx Musculoskeletal Deformity, Reports Hx Musculoskeletal Trauma Psychiatric Medical History: Traumatic Medical History: Past Surgical History: Reports: Hx Cardiac Catheterization, Hx Orthopedic Surgery - left foot, bilateral rotator cuff, c 5-6 fusion - Immunizations Immunizations up to date: Yes Hx Diphtheria, Pertussis, Tetanus Vaccination: Yes Physical Exam - Vital signs Vitals: Temp Pulse Resp BP Pulse Ox 98.1 F 80 16 139/67 H 100 03/04/20 12:58 03/04/20 12:58 03/04/20 12:58 03/04/20 12:58 03/04/20 12:58 Course - Vital Signs Vital signs: Temp Pulse Resp BP Pulse Ox 98.1 F 80 16 139/67 H 100 03/04/20 12:58 03/04/20 12:58 03/04/20 12:58 03/04/20 12:58 03/04/20 12:58 Doctor's Discharge - Discharge Referrals: PARAMJIT STILL, PAAriadneC [Primary Care Provider] - Follow up as needed
[2020-03-04 13:46] LABS: ABSOLUTE BASOPHILS # (AUTO) 0.1 10^3/uL (0.0-0.2); ABSOLUTE EOSINOPHILS # (AUTO) 0.2 10^3/uL (0.0-0.6); ABSOLUTE LYMPHOCYTES (AUTO) 2.2 10^3/uL (0.5-4.7); ABSOLUTE MONOCYTES (AUTO) 0.7 10^3/uL (0.1-1.4); ABSOLUTE NEUT (AUTO) 5.8 10^3/uL (1.7-8.2); BASOPHILS % (AUTO) 0.6 % (0-2); EOSINOPHILS % (AUTO) 2.2 % (0-6); HEMATOCRIT 49.9 % (37.9-51.0); HEMOGLOBIN 16.7 g/dL (13.5-17.0); LYMPHOCYTES % (AUTO) 24.9 % (13-45); MEAN CORPUSCULAR HEMOGLOBIN 27.8 pg (27.0-33.4); MEAN CORPUSCULAR HGB CONC 33.5 g/dL (32.0-36.0); MEAN CORPUSCULAR VOLUME 83 fl (80-97); MONOCYTES % (AUTO) 7.5 % (3-13); PLATELET COUNT 251 10^3/uL (150-450); RED BLOOD COUNT 6.02 10^6/uL (4.35-5.55); RED CELL DISTRIBUTION WIDTH 15.6 % (11.5-14.0); SEGMENTED NEUTROPHILS % (AUTO) 64.8 % (42-78); TOTAL CELLS COUNTED % (AUTO) 100 %
[2020-03-04 13:50] LABS: INTERNATIONAL RATION (INR) 0.95; PROTHROMBIN TIME 12.9 SEC (11.4-15.4)
[2020-03-04 13:51] LABS: PARTIAL THROMBOPLASTIN TIME 26.5 SEC (23.5-35.8)
[2020-03-04 14:04] LABS: ALKALINE PHOSPHATASE 82 U/L (38-126); ANION GAP 6 (5-19); ASPARTATE AMINO TRANSFERASE 36 U/L (17-59); BILIRUBIN,DIRECT 0.1 mg/dL (0.0-0.4); BILIRUBIN,TOTAL 0.6 mg/dL (0.2-1.3); BLOOD UREA NITROGEN 10 mg/dL (7-20); CALCIUM 9.1 mg/dL (8.4-10.2); CARBON DIOXIDE 29 mmol/L (22-30); CHLORIDE 103 mmol/L (98-107); GLUCOSE 116 mg/dL (75-110); POTASSIUM 3.7 mmol/L (3.6-5.0); TOTAL PROTEIN 6.8 g/dL (6.3-8.2)
[2020-03-04 15:36] LABS: APPEARANCE,URINE CLEAR; BILIRUBIN,URINE NEGATIVE (NEGATIVE); COLOR,URINE YELLOW; GLUCOSE, URINE NEGATIVE (NEGATIVE); KETONES,URINE NEGATIVE (NEGATIVE); LEUKOCYTE ESTERASE,URINE NEGATIVE (NEGATIVE); NITRITE,URINE NEGATIVE (NEGATIVE); PROTEIN,URINE NEGATIVE (NEGATIVE); URINE SPECIFIC GRAVITY 1.013; UROBILINOGEN,URINE NEGATIVE mg/dL (<2.0)
--- NOTE | 2020-03-04 16:13 | RADIOLOGY REPORT (SQ) ---
EXAM DESCRIPTION: CHEST 2 VIEWS IMAGES COMPLETED DATE/TIME: 03/04/2020 3:58 pm REASON FOR STUDY: atraumatic left flank ecchymosis and pain COMPARISON: PA and lateral views of the chest from 11/19/2016. EXAM PARAMETERS: NUMBER OF VIEWS: Two views. TECHNIQUE: PA and lateral views of the chest were obtained. RADIATION DOSE: NA LIMITATIONS: None. FINDINGS: LUNGS AND PLEURA: No consolidation, pleural effusion or pneumothorax. MEDIASTINUM AND HILAR STRUCTURES: No mediastinal or hilar contour abnormality. HEART AND VASCULAR STRUCTURES: The cardiac silhouette and pulmonary vasculature are within normal chavez its. BONES: Fusion hardware in the cervical spine. HARDWARE: Cholecystectomy clips. OTHER: No other finding. IMPRESSION: No acute cardiopulmonary process. TECHNICAL DOCUMENTATION: JOB ID: [id number] 2010 [employer]- All Rights Reserved Reading location - IP/workstation name: [email or web address]
--- NOTE | 2020-03-04 16:14 | RADIOLOGY REPORT (SQ) ---
EXAM DESCRIPTION: KUB/ABDOMEN (SINGLE VIEW) IMAGES COMPLETED DATE/TIME: 03/04/2020 3:58 pm REASON FOR STUDY: atraumatic left flank ecchymosis and pain COMPARISON: None. NUMBER OF VIEWS: One view. TECHNIQUE: AP supine views of the abdomen were obtained. LIMITATIONS: None. FINDINGS: BOWEL GAS PATTERN: No dilated loops of bowel. CALCIFICATIONS: No calcifications projecting within the renal fossae or along the expected course of the ureters. SOFT TISSUES: No acute gross abnormality. HARDWARE: Cholecystectomy clips. BONES: No acute abnormality. OTHER: No other findings. IMPRESSION: Nonobstructive bowel gas pattern. TECHNICAL DOCUMENTATION: JOB ID: [id number] 2010 [employer]- All Rights Reserved Reading location - IP/workstation name: [email or web address]
--- NOTE | 2020-03-04 16:21 | RADIOLOGY REPORT (SQ) ---
EXAM DESCRIPTION: U/S ABDOMEN COMPLETE W/O DOP IMAGES COMPLETED DATE/TIME: 03/04/2020 3:52 pm REASON FOR STUDY: left flank ecchymosis and pain, atraumatic COMPARISON: Ultrasound of the abdomen from 03/04/2020. TECHNIQUE: Dynamic and static grayscale images acquired of the abdomen and recorded on PACS. Additio nal selected color Doppler and spectral images recorded. Note: Study does not meet criteria for complete doppler/duplex scan LIMITATIONS: None. FINDINGS: PANCREAS: The visualized portions of the pancreas appear normal. LIVER: Increased echogenicity of hepatic parenchyma. LIVER VASCULATURE: Normal hepatopetal directional flow in the main portal vein. The hepatic veins ar e patent. GALLBLADDER: Surgically absent. ULTRASOUND-DETECTED ESCUDERO'S SIGN: Not applicable. INTRAHEPATIC DUCTS AND COMMON DUCT: The common bile duct measures 3 mm in diameter. There is no dila tation of the intrahepatic ducts. INFERIOR VENA CAVA: Patent. AORTA: No aneurysm. RIGHT KIDNEY: The right kidney measures 10.8 cm in length. There is no hydronephrosis. LEFT KIDNEY: The left kidney measures 11.3 cm in length. There is no hydronephrosis. SPLEEN: The spleen measures 11.7 cm in length. PERITONEAL AND PLEURAL SPACES: No ascites or effusions. OTHER: The fluid-filled structure superior to the pancreas is presumed to represent the fluid-filled stomach, however if there is clinical concern for a peripancreatic fluid collection correlation with a contrast-enhanced CT is recommend. IMPRESSION: 1. Hepatic steatosis. 2. Status post cholecystectomy. There is no biliary ductal dilatation. 3. No hydronephrosis. 4. No splenomegaly. 5. The fluid-filled structure superior to the pancreas is presumed to represent the fluid-filled stom ach, however if there is clinical concern for a peripancreatic fluid collection correlation with a co ntrast-enhanced CT is recommend. TECHNICAL DOCUMENTATION: JOB ID: [id number] 2010 [employer]- All Rights Reserved Reading location - IP/workstation name: [email or web address]
--- NOTE | 2020-03-04 17:20 | ER Document Report ---
ED General - General Chief Complaint: Flank Pain Stated Complaint: SIDE PAIN Time Seen by Provider: 03/04/20 13:00 Primary Care Provider: PARAMJIT STILL PA-C [PHYSICIAN STORE CLERK] - Follow up as needed TRAVEL OUTSIDE OF THE [place] IN LAST 30 DAYS: No - HPI Notes: Chief Complaint: Left flank bruising and pain Historian: History obtained from patient HPI: This is a 39-year-old male presents to the ER with 3 days of left flank bruising with pain starting today. He denies any injury or trauma. Area is tender to the touch and with movement. Patient does take Brilinta which is antiplatelet medication. He has no other associated symptoms. He denies hematuria, dysuria, nausea, vomiting, abdominal pain, chest pain, shortness of breath, fever, chills. No recent illness, sore throat, mono. No history of pancreatitis or aortic aneurysm. reports normal bowel and bladder function. ROS: Constitutional: no fevers. HEENT: no DELEON, sore throat, or vision changes. CV: no chest pain or palpitations. Resp: no cough or SOB. GI: no abdominal pain, or n/v/d. : no dysuria, hematuria, or incont. MSK: Left flank ecchymosis and pain Skin: no rashes or itching. Neuro: no seizures, weakness, numbness, or confusion. Hematological: no ecchymosis or easy bleeding. Endocrine: no polyuria/polydipsia, no heat/cold intolerance. Psych: no SI/HI, AH/VH or memory loss. PMHx: Reviewed and agree as charted by RN. PSHx: Reviewed and agree as charted by RN. SOCHx: Reviewed and agree as charted by RN. FHX: No significant familial comorbid conditions directly related to patient complaint Current Medications: Reviewed and agree with the patient medications as charted by the RN. Allergies: Reviewed and agree with the listed allergies as charted by the RN Physical Exam: Vitals: Reviewed in chart as documented by RN. General: Alert and in NAD. Head: Normocephalic; atraumatic Eyes: PERRLA, Conjunctivae clear sclerae non-icteric bilat ENT: no soft palate swelling or uvular deviation Neck: trachea midline, no unilateral swelling/tenderness/lymphadenopathy CV: RRR, no M/R/G; symmetric distal pulses Resp: respirations even and unlabored, CTA bilat. GI: abd soft and nondistended. NTTP. normal BS. no pulsatile mass 6 cm old appearing ecchymosis to the left lower flank. tender to upper and lower left flank. no erythema or swelling. no left rib deformity or step off. no pelvic tenderness MSK: FROM of all extremities. No midline CTL spine tenderness/deformity Skin: warm, moist, good turgor. no rash/lesions Neuro: Alert and oriented X 4. following CN 2-12 intact. no unilateral weakness/numbness Psych: No SI/HI or AH/VH. ED Results: Medical Decision-Making: Differential includes hematoma, splenic rupture, retroperitoneal hemorrhage, pancreatitis, rib fracture, muscle strain/sprain, vascular injury, bleeding disorder, etc. plan- discussed w/ Dr Boucher- will get labs, cxr, KUB, and abdominal complete US. vitals stable labs reassuring, normal hgb. normal lipase. US negative-no signs of retroperitoneal hemorrhage, aortic dissection, splenic rupture, ect. cxr and kub wnl. discussed findings w/ pt. considering reassuring workup and no other associated symptoms, pt may have a spontaneous hematoma compounded by taking brilanta. Offered Cat scan w/ IV contrast for further investigation but pt declined. he will d/c home and monitor symptoms closely and return if hematoma enlarges, worsening pain, n/v, fever, or other concernsing signs of symptoms - Related Data Allergies/Adverse Reactions: baclofen [Baclofen] Allergy (Severe, Verified 10/09/19 23:39) Coma rabeprazole sodium [From Aciphex] Allergy (Severe, Verified 10/09/19 23:39) Severe sweating, turned red tramadol HCl [From Ultram] Allergy (Severe, Verified 10/09/19 23:39) Severe N&V nickel [Nickel] Allergy (Intermediate, Verified 10/09/19 23:39) sore, blister hydrocodone bitartrate [From Vicodin] Allergy (Mild, Verified 10/09/19 23:39) RASH acetaminophen [From Tylenol] Allergy (Verified 10/09/19 23:39) Past Medical History - Social History Smoking Status: Unknown if Ever Smoked Family History: DM, Thyroid Disfunction, Other - tachycardia/ablation. denies: Arthritis, CAD, COPD, CVA, Hyperlipidemia, Hypertension, Malignancy - Past Medical History Cardiac Medical History: Reports: Hx Heart Attack, Hx Hypertension Pulmonary Medical History: Reports: Hx Asthma - Last attack over 10 years ago Neurological Medical History: Reports: Hx Seizures - hx of, pt states last seizure at age 12. Denies: Hx Parkinson's Disease Renal/ Medical History: Denies: Hx Peritoneal Dialysis Musculoskeletal Medical History: Reports Hx Arthritis, Reports Hx Muscle Weakness, Reports Hx Musculoskeletal Deformity, Reports Hx Musculoskeletal Trauma Psychiatric Medical History: Traumatic Medical History: Past Surgical History: Reports: Hx Cardiac Catheterization, Hx Orthopedic Surgery - left foot, bilateral rotator cuff, c 5-6 fusion - Immunizations Immunizations up to date: Yes Hx Diphtheria, Pertussis, Tetanus Vaccination: Yes Physical Exam - Vital signs Vitals: Temp Pulse Resp BP Pulse Ox 98.1 F 80 16 139/67 H 100 03/04/20 12:58 03/04/20 12:58 03/04/20 12:58 03/04/20 12:58 03/04/20 12:58 Course - Vital Signs Vital signs: Temp Pulse Resp BP Pulse Ox 98.1 F 80 16 139/67 H 100 03/04/20 12:58 03/04/20 12:58 03/04/20 12:58 03/04/20 12:58 03/04/20 12:58 - Laboratory Results Result Diagrams: 03/04/20 13:12 03/04/20 13:12 Laboratory Results Interpreted: 03/04/20 03/04/20 03/04/20 13:12 13:12 15:20 RBC 6.02 H RDW 15.6 H Glucose 116 H Urine Blood SMALL H Critical Laboratory Results Reviewed: No Critical Results - Radiology Results Critical Radiology Results Reviewed: No Critical Results Discharge - Discharge Clinical Impression: Hematoma of left flank Qualifiers: Encounter type: initial encounter Qualified Code(s): S30.1XXA - Contusion of abdominal wall, initial encounter Condition: Stable Disposition: HOME, SELF-CARE Instructions: Hematoma ([facility]) Additional Instructions: follow up with your primary doctor in 2-3 days for recheck. return to the ER if your condition worsens or if you develop any other concerning signs or symptoms. Referrals: PARAMJIT STILL PA-C [PHYSICIAN STORE CLERK] - Follow up as needed CLARA PRICE MD [COMMUNITY BASED STAFF] - Follow up as needed
[2020-03-04 17:40] VITALS: BP 130/72
== END 2020-03-04 17:40 | disposition home or self-care (01) ==
LOC: ER 12:53
DX: S30.1XXA Contusion of abdominal wall, initial encounter (principal); X58.XXXA Exposure to other specified factors, initial encounter; R10.9 Unspecified abdominal pain; R10.819 Abdominal tenderness, unspecified site; Z79.02 Long term (current) use of antithrombotics/antiplatelets; I10 Essential (primary) hypertension; J45.909 Unspecified asthma, uncomplicated; I25.2 Old myocardial infarction; Z88.8 Allergy status to other drugs, medicaments and biological substances; Z88.6 Allergy status to analgesic agent; Z91.048 Other nonmedicinal substance allergy status
CPT/HCPCS: 36415; 71046; 74018; 76700; 80053; 81001; 83690; 85025; 85610; 85730; 86850; 86900; 86901; 99285

== ENCOUNTER → 2020-04-05 | Outpatient (CLI) | payer MEDICARE, OTHER, MEDICAID ==
[2020-04-05 09:44] LABS: ALBUMIN 3.7 g/dL (3.5-5.0); ALKALINE PHOSPHATASE 107 U/L (38-126); ANION GAP 5 (5-19); ASPARTATE AMINO TRANSFERASE 21 U/L (17-59); BILIRUBIN,DIRECT 0.2 mg/dL (0.0-0.4); BILIRUBIN,TOTAL 0.6 mg/dL (0.2-1.3); BLOOD UREA NITROGEN 12 mg/dL (7-20); CALCIUM 8.9 mg/dL (8.4-10.2); CARBON DIOXIDE 28 mmol/L (22-30); CHLORIDE 106 mmol/L (98-107); CHOLESTEROL 143.91 mg/dL (0-200); GLUCOSE 127 mg/dL (75-110); POTASSIUM 3.8 mmol/L (3.6-5.0); TOTAL PROTEIN 5.9 g/dL (6.3-8.2); TRIGLYCERIDES 347 mg/dL (<150)
[2020-04-05 09:54] LABS: DIRECT LDL 72 mg/dL (<100)
[2020-04-05 09:58] LABS: VLDL CHOLESTEROL 69.4 mg/dL (10-31)
== END ==
LOC: OD 08:44
PROVIDERS: ATTEND Physician Assistant
DX: R60.9 Edema, unspecified (principal); R00.2 Palpitations; Z79.899 Other long term (current) drug therapy; E78.2 Mixed hyperlipidemia; R73.09 Other abnormal glucose
CPT/HCPCS: 36415; 80048; 80061; 80076; 83036